=== PATIENT | male | born 1955 | race African-American/Black ===

== ENCOUNTER 2018-02-27 15:35 | Inpatient (IN) ==
[2018-02-27] MEDS ORDERED: Sod Chloride 0.9% Inj 1,000 ML IV.SIG ONE (16:16)
[2018-02-27 17:05] LABS: Baso # (Auto) 0.1 th/mm3 (0.0-0.2); Baso % (Auto) 0.4 % (0.0-2.0); Eos # (Auto) 11.3 th/mm3 (0.0-0.4); Eos % (Auto) 41.6 % (0.0-4.0); Hematocrit 43.2 % (39.0-51.0); Hemoglobin 14.9 gm/dL (13.0-17.0); Lymph # (Auto) 2.2 th/mm3 (1.0-4.8); Mean Corpuscular HGB Conc 34.4 % (32.0-36.0); Mean Corpuscular Hemoglobin 30.7 pg (27.0-34.0); Mean Corpuscular Volume 89.4 fL (80.0-100.0); Mean Platelet Volume 9.9 fL (7.0-11.0); Mono # (Auto) 1.8 th/mm3 (0.0-0.9); Mono % (Auto) 6.5 % (0.0-8.0); Neut # (Auto) 11.8 th/mm3 (1.8-7.7); Neut % (Auto) 43.5 % (16.0-70.0); Platelet Count 503 th/mm3 (150-450); Red Blood Count 4.84 mil/mm3 (4.50-5.90); Red Cell Distribution Width 13.4 % (11.6-17.2); White Blood Count 27.1 th/mm3 (4.0-11.0)
--- NOTE | 2018-02-27 17:05 | ED ---
HPI General Chief Complaint: Back Pain/Injury Stated Complaint: back pain Time Seen by Provider: 02/27/18 16:15 Source: patient Mode of arrival: ambulatory Limitations: no limitations History of Present Illness HPI Narrative: The patient 62 years old and arrives to the ER after visiting the [facility]. The [facility] doctor requested a "rule out Churg-Juan C syndrome" workup which was evidently considered appropriate due to an eosinophilia of 50% on CBC. Patient reports back pain which started the day after he lifted a heavy mattress upstairs. He also has abdominal pain which started a few days after he started taking Aleve for the back pain. No vomiting or fever. No numbness or tingling in the saddle distribution. No fever. No incontinence of urine or stool. Patient reports a history of prostate cancer evidently in its very early stage. No history diabetes. No history chronic steroid use. Back pain started about 3 weeks ago. Patient started taking Aleve about a week after that. MD Complaint: Reports back pain Related Data Home Medications Medication Instructions Recorded Confirmed albuterol sulfate 2 puff INHALATION Q4-6H PRN 02/27/18 02/27/18 baclofen 20 mg PO BID PRN 02/27/18 02/27/18 budesonide-formoterol 2 puff INHALATION BID 02/27/18 02/27/18 meloxicam 15 mg PO DAILY PRN 02/27/18 02/27/18 simvastatin 10 mg PO QPM 02/27/18 02/27/18 Allergies Allergy/AdvReac Type Severity Reaction Status Date / Time No Known Allergies Allergy Verified 02/27/18 16:16 Review of Systems ROS: all other systems reviewed are negative PMFSH Medical History Medical History Asthma (Acute) Hypercholesterolemia (Acute) Prostate CA (Acute) Surgical History Surgical History No history of previous surgery (Acute) Social History Social History Substance History: No History of Abuse Smoking Status: Never smoker How Often Do You Have a Drink Containing Alcohol: Never Recent Travel in [place] within the Last 8 Weeks: No Recent Out of Country Travel within the Last 8 Weeks: No Exam Narrative Exam Narrative: GENERAL: 62-year-old male well-nourished well-developed SKIN: Focused skin assessment warm/dry. HEAD: Atraumatic. Normocephalic. EYES: Pupils equal and round. No scleral icterus. No injection or drainage. ENT: No nasal bleeding or discharge. Mucous membranes pink and moist. NECK: Trachea midline. No JVD. CARDIOVASCULAR: Regular rate and rhythm. No murmur appreciated. RESPIRATORY: No accessory muscle use. Clear to auscultation. Breath sounds equal bilaterally. GASTROINTESTINAL: Abdomen soft, non-tender, nondistended. Hepatic and splenic margins not palpable. MUSCULOSKELETAL: No obvious deformities. No clubbing. No cyanosis. No edema. No focal tenderness cervical spine exam. NEUROLOGICAL: Flexion at the hip is equal bilaterally. Flexion extension at the knees normal. Ankle and great toe flexion extension normal. Sensation equal bilaterally. Cranial nerves II through XII normal. Speech mentation normal. PSYCHIATRIC: Appropriate mood and affect; insight and judgment normal. Course Initial Documented Vital Signs Temperature 97.8 F 02/27/18 15:39 Pulse Rate 114 H 02/27/18 15:39 Respiratory Rate 20 02/27/18 15:39 Blood Pressure 125/64 02/27/18 15:39 Pulse Oximetry 100 02/27/18 15:39 Last Documented Vital Signs Temperature 97.8 F 02/27/18 15:39 Pulse Rate 114 H 02/27/18 15:39 Respiratory Rate 20 02/27/18 15:39 Blood Pressure 125/64 02/27/18 15:39 Pulse Oximetry 100 02/27/18 15:39 Critical Care Time Critical Care Time: Yes Total Critical Care Time: 35 Attestation: Aggregate critical care time was 35 minutes. Time to perform other separately billable procedures was not included in the critical care time. My time did not include minutes spent treating any other patients simultaneously or on activities that did not directly contribute to the patient's treatment. The services I provided to this patient were to treat and/or prevent clinically significant deterioration that could result in: severe sepsis, MODS I provided critical care services requiring my management, as noted below: Chart data review, documentation time, medication orders and management, vital sign assessments/reviewing monitor data, ordering and reviewing lab tests, ordering and interpreting/reviewing x-rays and diagnostic studies, care of the patient and discussion of the patient with the admitting physicians. Medical Decision Making MDM Narrative Medical decision making narrative: The patient arrives at the behest of the [facility]. Workup here reveals a CT scan with a hiatal hernia and no other acute abnormality. CBC shows a leukocytosis of 27,000 with 40% eosinophils and a few band neutrophils. No obvious nidus of infection is apparent with workup so far. Lung bases are clear on CT and the patient has no pulmonary complaints. Has been no vomiting or diarrhea. Hiatal hernia could be the cause of chest pain and the patient reports drinking a lot of joanie yuan which when coupled with Aleve might actually exacerbate or cause gastritis symptoms. Case discussed with Dr. Ladd for hematology who advises observation or admission with a plan for infectious disease consultation. Empiric antibiotic coverage considered reasonable. Eosinophilia may be in keeping with parasitic infection per Dr. Ladd. d/w Dr Arndt. blood cultures drawn. levaquin started. Medical Screen Exam Complete: Yes Emergency Medical Condition: Yes Differential Diagnosis Differential Diagnosis: Gastritis, peptic ulcer disease, pancreatitis, psoas strain, myofascial strain, DJD, epidural abscess, metastatic tumor Medical Records Medical records reviewed: Yes I reviewed the patient's medical records. outside records Lab Data Lab results reviewed: Yes I reviewed the patient's lab results. Result diagrams: 02/27/18 16:35 02/27/18 17:45 Lab Results 02/27/18 02/27/18 02/27/18 Range/Units 16:35 16:35 17:45 WBC 27.1 H (4.0-11.0) th/mm3 RBC 4.84 (4.50-5.90) mil/mm3 Hgb 14.9 (13.0-17.0) gm/dL Hct 43.2 (39.0-51.0) % MCV 89.4 (80.0-100.0) fL MCH 30.7 (27.0-34.0) pg MCHC 34.4 (32.0-36.0) % RDW 13.4 (11.6-17.2) % Plt Count 503 H (150-450) th/mm3 MPV 9.9 (7.0-11.0) fL Prelim Diff (Auto) Slide review pending Neut % (Auto) 43.5 (16.0-70.0) % Lymph % (Auto) 8.0 L (9.0-44.0) % Wright % (Auto) 6.5 (0.0-8.0) % Eos % (Auto) 41.6 H (0.0-4.0) % Baso % (Auto) 0.4 (0.0-2.0) % Neut # (Auto) 11.8 H (1.8-7.7) th/mm3 Lymph # (Auto) 2.2 (1.0-4.8) th/mm3 Wright # (Auto) 1.8 H (0.0-0.9) th/mm3 Eos # (Auto) 11.3 H (0.0-0.4) th/mm3 Baso # (Auto) 0.1 (0.0-0.2) th/mm3 WBC Differential Manual diff final Seg Neuts % (Manual) 40 (16-70) % Band Neuts % (Manual) 6 (0-6) % Lymphocytes % (Manual) 3 L (9-44) % Monocytes % (Manual) 3 (0-8) % Eosinophils % (Manual) 48 H (0-4) % Abs Neuts (Manual) 12.5 H (1.8-7.7) th/mm3 Differential Comment . Platelet Estimate Normal (Normal) Platelet Morphology (Normal) PT 11.8 H (9.8-11.6) sec INR 1.2 Ratio APTT 24.9 (24.3-30.1) sec Sodium 131 L (136-145) meq/L Potassium 4.4 (3.5-5.1) meq/L Chloride 95 L (98-107) meq/L Carbon Dioxide 27.1 (21.0-32.0) meq/L Anion Gap 9 (5-15) meq/L BUN 46 H (7-18) mg/dL Creatinine 1.64 H (0.60-1.30) mg/dL Estimated GFR 52 L (>89) mL/min Random Glucose 115 H (74-106) mg/dL Calcium 9.5 (8.5-10.1) mg/dL Total Bilirubin 1.0 (0.2-1.0) mg/dL AST 26 (15-37) U/L ALT 39 (12-78) U/L Alkaline Phosphatase 86 (45-117) U/L Total Protein 9.5 H (6.4-8.2) g/dL Albumin 2.9 L (3.4-5.0) g/dL Lipase 304 (73-393) U/L Imaging Data Attestation: I personally reviewed and interpreted this imaging study as follows : (Lung bases are clear) Radiologist's impression: Abdomen/Pelvis CT 02/27/18 16:16 CONCLUSION: 1. No definite acute abnormality seen. 2. Possible mild hiatal hernia. Discharge Plan Discharge Disposition Patient Disposition: 30 Still Patient Physicians Team ED Provider: Thomas Nichols Primary Care Provider: UNKNOWN, Rxs /Orders / Referrals /Forms Prescriptions: No Action meloxicam 15 mg Tablet 15 mg PO DAILY PRN (Reason: pain) RF: 0 simvastatin 10 mg Tablet 10 mg PO QPM RF: 0 baclofen 20 mg Tablet 20 mg PO BID PRN (Reason: Muscle Spasm) RF: 0 albuterol sulfate 90 mcg/actuation Hfa Aerosol Inhaler 2 puff INHALATION Q4-6H PRN (Reason: Shortness Of Breath) RF: 0 budesonide-formoterol 160-4.5 mcg/actuation Hfa Aerosol Inhaler 2 puff INHALATION BID RF: 0 Status ED Status: With Doctor
[2018-02-27 17:33] LABS: Activated Partial Thrombo Time 24.9 sec (24.3-30.1); INR 1.2 Ratio; Prothrombin Time 11.8 sec (9.8-11.6)
[2018-02-27 17:39] LABS: Eosinophils 48 % (0-4); Lymphocytes 3 % (9-44); Monocytes 3 % (0-8)
[2018-02-27 17:44] LABS: Platelet Estimate Normal (Normal)
[2018-02-27 18:18] LABS: Alanine Aminotransferase 39 U/L (12-78); Albumin 2.9 g/dL (3.4-5.0); Anion Gap 9 meq/L (5-15); Aspartate Aminotransferase 26 U/L (15-37); Blood Urea Nitrogen 46 mg/dL (7-18); Calcium 9.5 mg/dL (8.5-10.1); Carbon Dioxide 27.1 meq/L (21.0-32.0); Chloride 95 meq/L (98-107); Glomerular Filtration Rate 52 mL/min (>89); Glucose,Random 115 mg/dL (74-106); Lipase 304 U/L (73-393); Potassium 4.4 meq/L (3.5-5.1); Sodium 131 meq/L (136-145)
[2018-02-27 18:21] LABS: Alkaline Phosphatase 86 U/L (45-117); Total Protein 9.5 g/dL (6.4-8.2)
--- NOTE | 2018-02-27 18:49 | CT ---
EXAM DATE: 02/27/2018 6:22 PM EDT AGE/SEX: 62 years / Male INDICATIONS: Left upper quadrant pain and back pain. CLINICAL DATA: This is the patient's initial encounter. Patient reports that signs and symptoms have been present for 2 days and indicates a pain score of 6/10. MEDICAL/SURGICAL HISTORY: Carcinoma, prostatic. Asthma. None. ORAL CONTRAST: No oral contrast ingested. RADIATION DOSE: 13.57 CTDI (mGy) COMPARISON: No prior exams available for comparison. TECHNIQUE: Multiple contiguous axial images were obtained through the abdomen and pelvis following b olus infusion of 50 ml Omnipaque 350 (iohexol) nonionic water-soluble contrast as a single exam dos e. No oral contrast ingested. Using automated exposure control and adjustment of the mA and/or kV ac cording to patient size, radiation dose was kept as low as reasonably achievable to obtain optimal di agnostic quality images. DICOM format image data is available electronically for review and comparis on. FINDINGS: Lower Lungs: The visualized lower lungs are clear. Liver: The liver has a homogeneous density without space-occupying lesion. There is no dilation of th e biliary tree. Spleen: Homogeneous density without enlargement. Pancreas: Unremarkable without mass or calcification. Kidneys: Normal in size and shape. No evidence of mass or hydronephrosis. Adrenal Glands: Unremarkable. Aorta: The aorta and proximal iliac vessels are grossly unremarkable without aneurysmal dilation. T here are scattered atherosclerotic calcifications present. Bowel/Mesentery: There appears to be a possible mild hiatal hernia. The bowel is unremarkable. The a ppendix appears normal. Abdominal Wall: Intact. Retroperitoneum: No evidence of adenopathy in the retrocrural, para-aortic, or deep pelvic regions. Bladder: Contours are smooth. Reproductive Organs: No abnormal masses or calcifications seen. Inguinal: The inguinal region is unremarkable without evidence of adenopathy. Bony Structures: There is degenerative change in the lumbar spine. There is some sclerosis at the an terior inferior endplate of L2 that most closely resembles discogenic sclerosis. CONCLUSION: 1. No definite acute abnormality seen. 2. Possible mild hiatal hernia. Electronically signed by: Nico Galo MD 02/27/2018 6:47 PM EDT
[2018-02-27] MEDS ORDERED: Acetaminophen 325 MG Tablet PO PRN (19:36)
[2018-02-27] MEDS ORDERED: Bisacodyl 10 MG Supp RECTAL PRN (19:36)
--- NOTE | 2018-02-27 19:37 | P.HPIM ---
History of Present Illness Primary Care Physician: UNKNOWN History of Present Illness: This is a 62-year-old male with a PMH of Prostate CA, Hyperlipidemia and Asthma who was referred to the ER by the [facility] for eosinophilia and to r/o Churg-Juan C Syndrome. Pt states he was seen at the [facility] for routine blood work and was told his eosinophils were elevated at 50%. Previous lab work in February of last year was normal per patient. Does have a h/o Asthma. Recently injured his back while picking up a mattress and has been taking Aleve prn w/ some relief, however developed abdominal pain and stopped taking Aleve 1wk ago. Denies fever , chills, cough, sick contacts, night sweats or recent travel. On arrival, BP 125/64, HR 114, O2 sat 100% on RA, Afebrile. WBC 27. Eosinophils 48%. INR 1.2. Creatinine 1.64, no previous labs for comparison. CT Abd/Pelvis w/ no acute abnormalities. Dr. Ladd consulted by ER physician, recommended antibiotics and likely eval w/ ID. Pt without complaints at this time. - Diagnosis (1) SIRS (systemic inflammatory response syndrome) (2) Eosinophilia (3) Renal insufficiency (4) Asthma (5) Back pain Review of Systems PAST FAMILY HISTORY: Reviewed. No h/o DM or CAD All other systems reviewed negative except as stated in HPI PMFSH - History History Provided By: Patient - Medical History Medical History: Medical History (Last Updated 02/27/18 @ 16:18 by Deanna Clay) Asthma Hypercholesterolemia Prostate CA - Surgical History Surgical History: Surgical History (Last Updated 02/27/18 @ 16:19 by Deanna Clay) No history of previous surgery - Tobacco History Smoking Status: Never smoker - Alcohol History How Often Do You Have a Drink Containing Alcohol: Never - Substance Use History Substance History: No History of Abuse - Travel History Recent Travel in the [place] Within the Last 8 Weeks: No Recent Travel Out of the Country Within the Last 8 Weeks: No - Immunization History Tetanus Immunization: >5 Years Medications and Allergies Active Medications: Active Medications Levofloxacin/Dextrose (Levaquin 750 Mg Premix Inj) 150 mls @ 100 mls/hr IV.SIG ONCE ONE Stop: 02/27/18 20:59 Sodium Chloride (Ns Flush) 2 ml IV.FLUSH PRN PRN PRN Reason: FLUSH AFTER USING IV ACCESS Last Admin: 02/27/18 17:55 Dose: 2 ml Allergies Allergy/AdvReac Type Severity Reaction Status Date / Time No Known Allergies Allergy Verified 02/27/18 16:16 Home Medications Medication Instructions Recorded Confirmed Type albuterol sulfate 2 puff INHALATION Q4-6H PRN 02/27/18 02/27/18 History baclofen 20 mg PO BID PRN 02/27/18 02/27/18 History budesonide-formoterol 2 puff INHALATION BID 02/27/18 02/27/18 History meloxicam 15 mg PO DAILY PRN 02/27/18 02/27/18 History simvastatin 10 mg PO QPM 02/27/18 02/27/18 History Exam Vital signs: Vital Signs 02/27/18 15:39 Temperature 97.8 F Pulse Rate 114 H Respiratory Rate 20 Blood Pressure 125/64 Pulse Oximetry 100 Intake & Output 02/27/18 02/27/18 02/28/18 06:59 18:59 06:59 Intake Total 1000 / 1000 Balance 1000 / 1000 Weight 77.111 kg Intake: IV 1000 / 1000 NS Inj 1,000 ML @ Wide Open IV. 1000 / 1000 SIG BOLUS ONE Rx#:[id number] Narrative: PE: GENERAL: Very pleasant middle-aged black male in no acute distress. SKIN: Focused skin assessment warm and dry. HEENT: PERRLA, EOMI. No scleral icterus or conjunctival pallor. No lid lag or facial droop. CARDIOVASCULAR: Regular rate and rhythm. No obvious murmurs to auscultation. No chest tenderness to palpation. RESPIRATORY: No obvious rhonchi or wheezing. Clear to auscultation. Breath sounds equal bilaterally. GASTROINTESTINAL: Abdomen soft, non-tender, nondistended. BS normal. MUSCULOSKELETAL: Extremities without clubbing, cyanosis, or edema. No obvious deformities. NEUROLOGICAL: Awake, alert and oriented x4. No focal neurologic deficits. Moving both upper and lower extremities spontaneously. PSYCHIATRIC: Appropriate mood and affect. Insight and judgment normal. Results - Labs CBC & Chem 7: 02/27/18 16:35 02/27/18 17:45 Labs: Short CBC 02/27/18 Range/Units 16:35 WBC 27.1 H (4.0-11.0) th/mm3 Hgb 14.9 (13.0-17.0) gm/dL Hct 43.2 (39.0-51.0) % Plt Count 503 H (150-450) th/mm3 BMP 02/27/18 17:45 Sodium 131 L Potassium 4.4 Chloride 95 L Carbon Dioxide 27.1 BUN 46 H Creatinine 1.64 H Calcium 9.5 Liver Function 02/27/18 Range/Units 17:45 Total Bilirubin 1.0 (0.2-1.0) mg/dL AST 26 (15-37) U/L ALT 39 (12-78) U/L Alkaline Phosphatase 86 (45-117) U/L Albumin 2.9 L (3.4-5.0) g/dL - Imaging Impressions Abdomen/Pelvis CT 02/27/18 16:16 CONCLUSION: 1. No definite acute abnormality seen. 2. Possible mild hiatal hernia. Caprini VTE Risk Assessment Caprini VTE Risk Assessment: No/Low Risk (score <= 1) Caprini Risk Assessment Model: Point Value = 1 Point Value = 2 Point Value = 3 Point Value = 5 Age 41-60 Minor surgery BMI > 25 kg/m2 Swollen legs Varicose veins or History of unexplained or recurrent spontaneous Oral contraceptives or hormone replacement Sepsis (< 1 month) Serious lung disease, including pneumonia (< 1 month) Abnormal pulmonary function Acute myocardial infarction Congestive heart failure (< 1 month) History of inflammatory bowel disease Medical patient at bed rest Age 61-74 Arthroscopic surgery Major open surgery (> 45 min) Laparoscopic surgery (> 45 min) Malignancy Confined to bed (> 72 hours) Immobilizing plaster cast Central venous access Age >= 75 History of VTE Family history of VTE Factor V Leiden Prothrombin [id number] Lupus anticoagulant Anticardiolipin antibodies Elevated serum homocysteine Heparin-induced thrombocytopenia Other congenital or acquired thrombophilia Stroke (< 1 month) Elective arthroplasty Hip, pelvis, or leg fracture Acute spinal cord injury (< 1 month) Prophylaxis Regimen: Total Risk Factor Score Risk Level Prophylaxis Regimen 0-1 Low Early ambulation 2 Moderate Order ONE of the following: *Sequential Compression Device (SCD) *Heparin 5000 units SQ BID 3-4 Higher Order ONE of the following medications: *Heparin 5000 units SQ TID *Enoxaparin/Lovenox 40 mg SQ daily (WT < 150 kg, CrCl > 30 mL/min) *Enoxaparin/Lovenox 30 mg SQ daily (WT < 150 kg, CrCl > 10-29 mL/min) *Enoxaparin/Lovenox 30 mg SQ BID (WT < 150 kg, CrCl > 30 mL/min) AND/OR *Sequential Compression Device (SCD) 5 or more Highest Order ONE of the following medications: *Heparin 5000 units SQ TID (Preferred with Epidurals) *Enoxaparin/Lovenox 40 mg SQ daily (WT < 150 kg, CrCl > 30 mL/min) *Enoxaparin/Lovenox 30 mg SQ daily (WT < 150 kg, CrCl > 10-29 mL/min) *Enoxaparin/Lovenox 30 mg SQ BID (WT < 150 kg, CrCl > 30 mL/min) AND *Sequential Compression Device (SCD) Assessment and Plan - Assessment (1) SIRS (systemic inflammatory response syndrome) Code(s): R65.10 - Systemic inflammatory response syndrome (SIRS) of non- infectious origin without acute organ dysfunction Status: Acute (2) Eosinophilia Code(s): D72.1 - Eosinophilia Status: Acute (3) Renal insufficiency Code(s): N28.9 - Disorder of kidney and ureter, unspecified Status: Acute (4) Asthma Code(s): J45.909 - Unspecified asthma, uncomplicated Status: Acute (5) Back pain Code(s): M54.9 - Dorsalgia, unspecified Status: Acute - Plan A/P: 1. SIRS: HR 114, WBC 27, Source-unclear. CT Abd/Pelvis w/ no acute findings, images reviewed. Check U/a to eval for UTI. Check CXR to eval for possible PNA. Continue w/ Levaquin for now. 2. Eosinophilia: 48%, no previous labs for comparison, but pt reports lab work normal in the past. Eosinophilia possibly related to Asthma, however higher than expected. ?parasitic infection, however denies fever, chills, sick contacts, no recent travel. [facility] to [facility] Churg-Juan C, however very rare and pt denies cough, night sweats or weight loss. Will consult Hematology and ID for further eval and recommendations. 3. Asthma: no c/o SOB, check CXR to eval for underlying PNA, Albuterol Neb prn. 4. ELISE: Creatinine 1.64, no previous labs for comparison, IVF for hydration, check U/a to eval for UTI, monitor I/O, repeat labs in am. 5. Back Pain: Musculoskeletal, reports injury after picking up mattress, continue analgesics/antiemetics as needed. 6. DVT Prophylaxis: SCD/Teds 7. Social work for d/c planning as needed. 8. Case discussed w/ ER physician at length, labs/records/imaging reviewed by me.
[2018-02-27] MEDS: Sod Chloride 0.9% Inj 1,000 ML IV.CONT SCH (20:20)
--- NOTE | 2018-02-27 20:40 | XR ---
EXAM DATE: 02/27/2018 12:00 AM EDT AGE/SEX: 62 years / Male INDICATIONS: Evaluate for pneumonia. CLINICAL DATA: This is the patient's initial encounter. Patient reports that signs and symptoms have been present for 1 day and indicates a pain score of 0/10. MEDICAL/SURGICAL HISTORY: . Carcinoma, prostatic. Asthma. None. COMPARISON: No prior exams available for comparison. FINDINGS: Approximate 4.5 cm parenchymal consolidation is present in the right mid lung, however mass is difficult to exclude. Heart and mediastinum are unremarkable for technique. CONCLUSION: Probable right lung pneumonia. Follow up is recommended with repeat chest x-ray 4-6 weeks after appro priate clinical therapy. Electronically signed by: Padmini Umanzor MD 02/27/2018 8:39 PM EDT
[2018-02-27] MEDS ORDERED: Morphine Sulfate Inj 2 MG/ML Vial IV.PUSH PRN (21:20)
[2018-02-27] MEDS: Senna/Docusate Sodium 8.6/50 MG Tablet PO SCH (22:07)
[2018-02-28] MEDS: Sod Chloride 0.9% Inj 1,000 ML IV.CONT SCH ×2 (06:05→16:10)
[2018-02-28 06:43] LABS: Baso # (Auto) 0.1 th/mm3 (0.0-0.2); Baso % (Auto) 0.5 % (0.0-2.0); Eos # (Auto) 14.5 th/mm3 (0.0-0.4); Eos % (Auto) 52.2 % (0.0-4.0); Hematocrit 36.2 % (39.0-51.0); Hemoglobin 12.2 gm/dL (13.0-17.0); Lymph # (Auto) 1.3 th/mm3 (1.0-4.8); Lymph % (Auto) 4.8 % (9.0-44.0); Mean Corpuscular HGB Conc 33.7 % (32.0-36.0); Mean Corpuscular Hemoglobin 30.7 pg (27.0-34.0); Mean Corpuscular Volume 90.9 fL (80.0-100.0); Mean Platelet Volume 8.9 fL (7.0-11.0); Mono # (Auto) 1.9 th/mm3 (0.0-0.9); Mono % (Auto) 6.6 % (0.0-8.0); Neut % (Auto) 35.9 % (16.0-70.0); Platelet Count 315 th/mm3 (150-450); Red Blood Count 3.99 mil/mm3 (4.50-5.90); Red Cell Distribution Width 13.3 % (11.6-17.2); White Blood Count 27.9 th/mm3 (4.0-11.0)
[2018-02-28 07:23] LABS: Alanine Aminotransferase 25 U/L (12-78); Albumin 2.1 g/dL (3.4-5.0); Alkaline Phosphatase 80 U/L (45-117); Anion Gap 9 meq/L (5-15); Aspartate Aminotransferase 14 U/L (15-37); Blood Urea Nitrogen 33 mg/dL (7-18); Calcium 7.9 mg/dL (8.5-10.1); Carbon Dioxide 24.6 meq/L (21.0-32.0); Chloride 102 meq/L (98-107); Glomerular Filtration Rate 77 mL/min (>89); Glucose,Random 92 mg/dL (74-106); Potassium 4.5 meq/L (3.5-5.1); Sodium 136 meq/L (136-145); Total Protein 7.5 g/dL (6.4-8.2)
[2018-02-28] MEDS: Senna/Docusate Sodium 8.6/50 MG Tablet PO SCH ×2 (09:58→20:16)
[2018-02-28 11:14] LABS: Erythrocyte Sedimentation Rate 115 mm/hr (0-20)
--- NOTE | 2018-02-28 11:23 | CT ---
EXAM DATE: 02/28/2018 10:44 AM EDT AGE/SEX: 62 years / Male INDICATIONS: Abnormal prior imaging. CLINICAL DATA: This is the patient's initial encounter. Patient reports that signs and symptoms have been present for 1 day and indicates a pain score of 7/10. MEDICAL/SURGICAL HISTORY: Asthma. Carcinoma, prostatic. None. RADIATION DOSE: 7.01 CTDI (mGy) COMPARISON: [facility] [place], CHEST 1V SINGLE AP, 02/27/2018. [facility] [place], CT ABDOMEN & PELVIS W CONTRAST, 8. . TECHNIQUE: Multiple contiguous axial images were obtained through the chest without contrast. Image s were obtained in suspended respiration using multiple row detector helical technique. Using automa silvino exposure control and adjustment of the mA and/or kV according to patient size, radiation dose was kept as low as reasonably achievable to obtain optimal diagnostic quality images. DICOM format imag e data is available electronically for review and comparison. FINDINGS: Lungs: There is an area of densely calcified pleural plaque overlying the anterior right thorax and there is architectural distortion and tethering of the adjacent pulmonary parenchyma of the right upp er lobe. There is adjacent traction bronchiectasis and there is volume loss identified within the rig ht middle lobe with area of mild bronchiectasis. The remainder of the lungs are clear. Mediastinum: There is good visualization of the great vessels of the middle mediastinum. No evidenc e of mediastinal or hilar adenopathy/mass. Pleurae: Focal area of calcified pleural plaque within the anterior aspect of the right hemithorax. Axillae: Unremarkable. Bony Structures: Unremarkable. Miscellaneous: The imaged portion of the abdomen demonstrates abnormal appearance of the partially i rosalinda gallbladder which suggest gallbladder wall thickening. However, no persistent abnormality is se en on the subsequent CT abdomen and pelvis. This is likely secondary to volume averaging. CONCLUSION: 1. Area of densely calcified pleural plaque involving the anterior aspect of the right upper lobe wi th adjacent parenchymal opacity and architectural distortion consistent with an area of scarring and rounded atelectasis. Given lack of prior imaging recommend follow-up imaging in 3-6 months to evaluat e for stability. Electronically signed by: Cassia Dye MD 02/28/2018 11:21 AM EDT
--- NOTE | 2018-02-28 11:53 | P.CONID ---
History of Present Illness Service: Infectious Disease Consult date: 02/28/18 Requesting Physician: Eleno Ladd Reason for Consult: Evaluation and Mment of hypereosinophilia, leucocytosis SIRS. Primary Care Provider: UNKNOWN History of Present Illness: is a 62 y/o AAM with a PMHx of Prostate CA, Hyperlipidemia and late diagnosis of Asthma who was referred to the ER by the [facility] for eosinophilia and to workup hypereosinophilia and r/o Churg-Juan C Syndrome. Pt states he was seen at the [facility] for routine blood work and was told his eosinophils were elevated at 50%. Previous lab work in February of last year was normal per patient. Patient reports that he recently injured his back while picking up a mattress. He reports taking OTC Aleve prn w/ some relief, however developed abdominal pain and stopped taking Aleve 1 wk ago. His PCP notes indicate concern for NSAID gastritis. PCP at [facility] changed his pain medications to Meloxicam and Baclofen with some relief of pain. PCP sent labs with WBC 30, high eosinophils. On arrival, BP 125/64, HR 114, O2 sat 100% on RA, Afebrile. WBC 27. Eosinophils 48%. INR 1.2. Creatinine 1.64, no previous labs for comparison. CT Abd/Pelvis w/ no acute abnormalities. consulted by ER physician, recommended antibiotics and eval w/ ID. Pt without complaints at this time. Pertinent positives and negatives: Denies fever, chills, cough, sick contacts, night sweats or recent travel. Family history of Asthma: brother and father. 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 Used to live in [facility] prior to moving to [place]. Patient reports exposure to mold in his house due to water damage. Patient also reports seeing an neurology specialist and was told he was allergic to dog dander. He gave away his dog to someone else and since then has noted improvement in respiratory symptoms. he reports using Symbicort less. No antibiotic exposure prior to admission. No systemic or oral steroids prior to admission. No diarrhea or GI symptoms such as cramps or bloating or parasites in stool No skin issues such as dermatitis No Resp symptoms at present time No cough or phlegm No muscle aches to suggest dermatomyositis or eosinophilic myositis syndromes. ID consulted for Evaluation and MMent of hypereosinophilia and leucocytosis/ SIRS. Review of Systems All other systems reviewed negative except as stated in HPI Ears, Nose, Mouth, and Throat: Reports change in voice, Reports nasal congestion PMFSH - History History Provided By: Patient - Medical History Medical History: Medical History (Last Updated 02/27/18 @ 16:18 by Deanna Clay) Asthma Hypercholesterolemia Prostate CA - Surgical History Surgical History: Surgical History (Last Updated 02/27/18 @ 16:19 by Deanna Clay) No history of previous surgery - Tobacco History Second Hand Smoke Exposure: No Smoking Status: Never smoker - Alcohol History How Often Do You Have a Drink Containing Alcohol: Never - Substance Use History Substance History: No History of Abuse - Travel History Recent Travel in the [place] Within the Last 8 Weeks: No Recent Travel Out of the Country Within the Last 8 Weeks: No - Immunization History Tetanus Immunization: <5 Years Hx Influenza Vaccine This Season: No Medications and Allergies Active Medications: Active Medications Acetaminophen (Tylenol) 650 mg PO Q4H PRN PRN Reason: Temp > 100.4 Hydrocodone Bitart/Acetaminophen ([place] 5/325) 1 tab PO Q4H PRN PRN Reason: PAIN 3-5 Last Admin: 02/28/18 04:02 Dose: 1 tab Al Hydroxide/Mg Hydroxide (Milk Of Magnesia Liq) 30 ml PO Q12H PRN PRN Reason: Mild Constipation Albuterol (Albuterol Neb (Prn)) 2.5 mg NEB Q4HR NEB PRN PRN Reason: SOB/WHEEZING Bisacodyl (Dulcolax Supp) 10 mg RECTAL DAILY PRN PRN Reason: SEVERE CONSITIPATION Levofloxacin/Dextrose (Levaquin 750 Mg Premix Inj) 150 mls @ 100 mls/hr IV.SIG Q24H SHAMA Sodium Chloride (Ns Inj) 1,000 mls @ 100 mls/hr IV.CONT .Q10H SHAMA Last Admin: 02/28/18 06:05 Dose: 100 mls/hr Lactulose (Lactulose Liq) 30 ml PO DAILY PRN PRN Reason: SEVERE CONSITIPATION Morphine Sulfate (Morphine Inj) 2 mg IV.PUSH Q4H PRN PRN Reason: PAIN 6-10 Ondansetron HCl (Zofran Inj) 4 mg IV.PUSH Q6H PRN PRN Reason: NAUSEA OR VOMITING Senna/Docusate Sodium (Marichuy-Colace) 1 tab PO BID SHAMA Last Admin: 02/28/18 09:58 Dose: Not Given Sennosides (Senokot) 17.2 mg PO Q12H PRN PRN Reason: Moderate Constipation Sodium Chloride (Ns Flush) 2 ml IV.FLUSH PRN PRN PRN Reason: FLUSH AFTER USING IV ACCESS Last Admin: 02/27/18 17:55 Dose: 2 ml Allergies Allergy/AdvReac Type Severity Reaction Status Date / Time No Known Allergies Allergy Verified 02/27/18 16:16 Home Medications Medication Instructions Recorded Confirmed Type albuterol sulfate 2 puff INHALATION Q4-6H PRN 02/27/18 02/27/18 History baclofen 20 mg PO BID PRN 02/27/18 02/27/18 History budesonide-formoterol 2 puff INHALATION BID 02/27/18 02/27/18 History meloxicam 15 mg PO DAILY PRN 02/27/18 02/27/18 History simvastatin 10 mg PO QPM 02/27/18 02/27/18 History Exam Vital signs: Vital Signs 02/27/18 15:39 02/27/18 20:00 02/27/18 21:35 Temperature 97.8 F 97.5 F L Pulse Rate 114 H 95 H Respiratory Rate 20 18 16 Blood Pressure 125/64 122/70 Pulse Oximetry 100 96 02/27/18 22:30 02/28/18 00:00 02/28/18 04:00 Temperature 97.5 F L 97.6 F Pulse Rate 87 83 86 Respiratory Rate 18 18 Blood Pressure 117/64 125/70 Pulse Oximetry 97 99 02/28/18 08:00 Temperature 97.7 F Pulse Rate 82 Respiratory Rate 16 Blood Pressure 130/67 Pulse Oximetry 97 Intake & Output 02/27/18 02/28/18 02/28/18 18:59 06:59 18:59 Intake Total 2149 / 0 Balance 215 / 2149 Weight 77.111 kg 77.111 kg Intake: IV 2149 / 0 NS Inj 1,000 ML @ 100 mls/hr IV 1000 / 1000 .CONT .Q10H SHAMA Rx#:[id number] Levaquin 750 mg Premix Inj 150 150 / 150 ML @ 100 mls/hr IV.SIG ONCE ONE Rx#:[id number] NS Inj 1,000 ML @ Wide Open IV. 1000 / 1000 SIG BOLUS ONE Rx#:[id number] Other: # Voids 2 Weight On Admission 77.111 kg Narrative: GENERAL: Well-nourished well-developed, not in acute distress SKIN: Cool and dry, no generalized rash HEAD: Atraumatic. Normocephalic. No temporal or scalp tenderness. EYES: Pupils equal round and reactive. Scleral icterus. No injection or drainage. No petechia ENT: Nothing abnormal detected NECK: Trachea midline. Supple, nontender, no meningeal signs. CARDIOVASCULAR: HS audible. RESPIRATORY: Clear to auscultation bilaterally. GASTROINTESTINAL: Abdomen soft nontender. MUSCULOSKELETAL: Extremities without clubbing, cyanosis. NEUROLOGICAL: Alert oriented 3. Nonfocal. Psych cooperative IV line sites ok. Results - Labs CBC & Chem 7: 02/28/18 05:29 02/28/18 05:29 Labs: Laboratory Results - last 24 hr 02/27/18 02/27/18 02/27/18 16:35 16:35 17:45 WBC 27.1 H RBC 4.84 Hgb 14.9 Hct 43.2 MCV 89.4 MCH 30.7 MCHC 34.4 RDW 13.4 Plt Count 503 H MPV 9.9 Prelim Diff (Auto) Slide review pending Neut % (Auto) 43.5 Lymph % (Auto) 8.0 L Campbell % (Auto) 6.5 Eos % (Auto) 41.6 H Baso % (Auto) 0.4 Neut # (Auto) 11.8 H Lymph # (Auto) 2.2 Campbell # (Auto) 1.8 H Eos # (Auto) 11.3 H Baso # (Auto) 0.1 WBC Differential Manual diff final Seg Neuts % (Manual) 40 Band Neuts % (Manual) 6 Lymphocytes % (Manual) 3 L Monocytes % (Manual) 3 Eosinophils % (Manual) 48 H Abs Neuts (Manual) 12.5 H Differential Comment . Platelet Estimate Normal Platelet Morphology Smear Path Review ESR PT 11.8 H INR 1.2 APTT 24.9 Sodium 131 L Potassium 4.4 Chloride 95 L Carbon Dioxide 27.1 Anion Gap 9 BUN 46 H Creatinine 1.64 H Estimated GFR 52 L Random Glucose 115 H Calcium 9.5 Total Bilirubin 1.0 AST 26 ALT 39 Alkaline Phosphatase 86 Total Protein 9.5 H Albumin 2.9 L Lipase 304 02/28/18 02/28/18 02/28/18 05:29 05:29 05:29 WBC 27.9 H RBC 3.99 L Hgb 12.2 L D Hct 36.2 L MCV 90.9 MCH 30.7 MCHC 33.7 RDW 13.3 Plt Count 315 D MPV 8.9 Prelim Diff (Auto) Neut % (Auto) 35.9 Lymph % (Auto) 4.8 L Campbell % (Auto) 6.6 Eos % (Auto) 52.2 H Baso % (Auto) 0.5 Neut # (Auto) 10.0 H Lymph # (Auto) 1.3 Campbell # (Auto) 1.9 H Eos # (Auto) 14.5 H Baso # (Auto) 0.1 WBC Differential . Seg Neuts % (Manual) Band Neuts % (Manual) Lymphocytes % (Manual) Monocytes % (Manual) Eosinophils % (Manual) Abs Neuts (Manual) Differential Comment Auto diff final Platelet Estimate Platelet Morphology Smear Path Review ESR 115 H PT INR APTT Sodium 136 Potassium 4.5 Chloride 102 Carbon Dioxide 24.6 Anion Gap 9 BUN 33 H Creatinine 1.16 Estimated GFR 77 L Random Glucose 92 Calcium 7.9 L D Total Bilirubin 1.2 H AST 14 L ALT 25 Alkaline Phosphatase 80 Total Protein 7.5 D Albumin 2.1 L D Lipase - Imaging Impressions Chest X-Ray 02/27/18 00:00 CONCLUSION: Probable right lung pneumonia. Follow up is recommended with repeat chest x-ray 4-6 weeks after appropriate clinical therapy. Abdomen/Pelvis CT 02/27/18 16:16 CONCLUSION: 1. No definite acute abnormality seen. 2. Possible mild hiatal hernia. Chest CT 02/28/18 00:00 CONCLUSION: 1. Area of densely calcified pleural plaque involving the anterior aspect of the right upper lobe with adjacent parenchymal opacity and architectural distortion consistent with an area of scarring and rounded atelectasis. Given lack of prior imaging recommend follow-up imaging in 3-6 months to evaluate for stability. Assessment and Plan - Plan Hypereosinophilia: DDx: Rule out infections such as parasites,fungal infections. Drug induced allergy: check urine eosinophils. Baseline labs 1 month back were negative. With Cr being high check for urine eosinophils. Nothing to suggest Eosinophilia myositis syndromes. Possible Pulm Eosinophilia syndromes. Rule out T cell lymphoma if persistent eosinophilia and no cause found. Leucocytosis: was not on steroids likely part of eosinophilia process. Rule out T cell lymphoma. Oncology on board. Late diagnosis of Asthma. Rule out Churgg Juan C syndrome. Acute renal failure: was on NSAIDS ? allergic reaction to drug. recs: Check eosinophils in urine. Check Stool studies to r/o parasites. Check Fungal and AFB blood infections. Check Aspergillus as cause for Pulm Eosinophilia syndrome. Consult Pulmonology may need Bronch if eosinophilia persists send BAL eosinophils count and cultures. Fungal studies Continue Levaquin for now. Check HIV screen Check Hepatitis panel. Check Immuneglobulins particularly IgE. Follow cultures and tests Follow clinical course. mary alice wheat RN mary alice patient plan for the day [facility]ed [facility].
--- NOTE | 2018-02-28 12:47 | ECG ---
Date Performed: 02/27/2018 Time Performed: 17:53:19 PTAGE: 62 years EKG: Sinus rhythm POSSIBLE LEFT ATRIAL ENLARGEMENT MINIMAL ST DEPRESSION BORDERLINE ECG NO PREVIOUS TRACING DOCTOR: Ramu Joe Interpretating Date/Time 02/28/2018 12:45:37
--- NOTE | 2018-02-28 13:05 | MB ---
cc: Eleno Ladd MD DATE: 02/28/2018 PHYSICIAN: Dr. Arndt. REASON FOR VISIT: Hematology consult rendering opinion on a patient with leukocytosis and eosinophilia. HISTORY OF PRESENT ILLNESS: The patient is a very pleasant 62-year-old male referred from [facility] for evaluation of leukocytosis eosinophilia and to evaluate for Churg-Juan C syndrome. The patient has history of asthma and had occasional exacerbations, last episode about 2 weeks ago. He also hurt his back while picking up a mattress a couple weeks ago. He started taking Aleve for about 4 days and developed midepigastric pain. He went to see his primary physician at the [facility]. The Aleve was stopped and he was given meloxicam and baclofen, which he has been taking for the last 4-5 days. CBC was done, which reportedly showed leukocytosis with 50% eosinophilia. The patient stated about 2 months ago, he had a physical exam and lab work was normal. He denies any fever or chill. He has no night sweats. He denies any weight loss. Denies chest pain. He has baseline shortness of breath from asthma. He denies significant cough. He has no nausea, vomiting, diarrhea. No melena or hematochezia. Abdominal pain has improved since he stopped the Aleve. He still has backache. He denies any change in urinary habits. He denies any rash or pleuritis. He denies any recent travel or eating unusual food. PAST MEDICAL HISTORY: 1. Prostate cancer, diagnosed about 3 months ago reportedly Alexander score was 6. 2. Hyperlipidemia. 3. Asthma. 4. Renal insufficiency. 5. Back pain. PAST SURGICAL HISTORY: 1. Right orchiectomy when he was a child due to an undescended testicle. 2. A cyst removed from his back. 3. Finger surgery while he was in the . 4. Prostate biopsy. FAMILY HISTORY: Six brothers, 3 sister, 1 son and a daughter, all healthy. No hematologic disorder in the family. SOCIAL HISTORY: No tobacco or alcohol use. ALLERGIES: NO KNOWN DRUG ALLERGIES. CURRENT MEDICATIONS: 1. Levaquin. 2. Marichuy-Colace. 3. He was taking meloxicam, baclofen, and the nasal spray as outpatient. REVIEW OF SYSTEMS: CONSTITUTIONAL: As above. EYES: Negative. ENT: Negative. CARDIOVASCULAR: No chest pressure or palpitation. RESPIRATORY: As above. GASTROINTESTINAL: As above. GENITOURINARY: As above. MUSCULOSKELETAL: As above. HEMATOLOGIC: As above. ENDOCRINE: Negative. DERMATOLOGY: Negative. PSYCHIATRIC: Negative. NEUROLOGIC: Negative. PHYSICAL EXAMINATION: VITAL SIGNS: Temperature 97.7, blood pressure 130/67, O2 saturation 97% on room air. GENERAL: He is alert and oriented x3, in no acute distress. HEENT: Atraumatic, normocephalic. Pupils are equal, round and reactive to light. Extraocular muscles are intact. No scleral icterus. Oropharynx dry mucosa. No lesion, no thrush, no ulcers. NECK: No thyromegaly. No palpable mass. LYMPHATIC: No palpable cervical, clavicular, axillary, or inguinal lymph nodes. CARDIOVASCULAR: Regular S1, S2 with no murmur. LUNGS: He has diffuse rhonchi and basilar crackles, he also has intermittent wheezing. ABDOMEN: Soft, nontender. Cannot palpate liver or spleen. EXTREMITIES: No cyanosis, no clubbing, no edema, no calf tenderness. BACK: No paravertebral tenderness. SKIN: No rash or petechiae. NEUROLOGIC: Nonfocal. LABORATORY DATA: WBC 27.9, hemoglobin 12.2, platelet count 312. Differential showed 52.2% eosinophilia with absolute eosinophil count 14.5, creatinine 1.16, total bilirubin 1.2, lipase 304. ASSESSMENT: 1. Leukocytosis and eosinophilia, which appeared to be acute onset. Reportedly, he had lab work done 2 months ago during his routine physical exam and was normal per patient. He noted to have leukocytosis and eosinophilia about a week ago. Repeat testing again showed persistent leukocytosis and eosinophilia. The patient has a history of asthma, but the degree of eosinophilia seems to be too high for asthma alone. The patient also started taking Aleve, which could also cause eosinophilia. On presentation, CT abdomen and pelvis did not show any acute changes. There was no splenomegaly or lymphadenopathy. Chest x-ray, however, showed a 4.5 cm parenchymal consolidation right middle lobe. On presentation, he had renal insufficiency, but creatinine has trended down with hydration. He likely has reactive leukocytosis and eosinophilia. We will also need to rule out primary bone marrow disorder and hypereosinophilic syndrome, but I think it is less likely. Other differential including infectious etiology and Infectious Disease has been consulted. I am going to get a CT of the chest to further evaluate the opacity noted on chest x-ray and he may need further pulmonology evaluation. We will also get a flow cytometry and check inflammatory markers, as well as a complement study. If all the workup is unremarkable, then we will proceed with a bone marrow biopsy to rule out bone marrow disorder. 2. Asthma with intermittent exacerbation. He has baseline shortness of breath. A chest x-ray showed opacity as above. 3. Prostate cancer reportedly diagnosed about 3 months ago. The patient stated, Crissy score was 6. His PSA was around 5. He was supposed to start radiation end of the month. He denies any urinary symptoms at this time. 4. Hyperlipidemia. 5. Renal insufficiency. The creatinine has trended down this morning. 6. Back pain. He hurt his back about 2 weeks ago while picking up a mattress. His pain has improved. RECOMMENDATIONS: 1. CT of the chest. 2. Check lab work as outlined above. 3. Await infectious disease evaluation. 4. May need a pulmonology evaluation pending CT finding. 5. We will consider bone marrow biopsy if the above evaluation is unremarkable and if he still has persistent leukocytosis and eosinophilia. Thank you Dr. Arndt for asking me to see this patient. MD AMARILYS De Leon/chantal , 10:58 AM , 11:14 AM [facility]
[2018-02-28 13:58] LABS: Complement C3 152 mg/dL (90-180); Immunoglobulin A 160 mg/dL (98-543); Immunoglobulin G 1880 mg/dL (670-1650); Immunoglobulin M 37 mg/dL (39-238); Vitamin B12 533 pg/mL (193-986)
--- NOTE | 2018-02-28 14:10 | P.PNIM ---
Subjective Interval history: Reports that he is starting to feel better. There is no active shortness of breath. No runny nose. No abdominal pain. He reports his back pain has improved. He does feel hungry wants to eat food. Physical Exam Vital signs: Vital Signs 02/27/18 15:39 02/27/18 20:00 02/27/18 21:35 Temperature 97.8 F 97.5 F L Pulse Rate 114 H 95 H Respiratory Rate 20 18 16 Blood Pressure 125/64 122/70 Pulse Oximetry 100 96 02/27/18 22:30 02/28/18 00:00 02/28/18 04:00 Temperature 97.5 F L 97.6 F Pulse Rate 87 83 86 Respiratory Rate 18 18 Blood Pressure 117/64 125/70 Pulse Oximetry 97 99 02/28/18 08:00 Temperature 97.7 F Pulse Rate 82 Respiratory Rate 16 Blood Pressure 130/67 Pulse Oximetry 97 Intake & Output 02/27/18 02/28/18 02/28/18 18:59 06:59 18:59 Intake Total 2150 / 2150 Balance 2150 / 2150 Weight 77.111 kg 77.111 kg Intake: IV 2150 / 2150 NS Inj 1,000 ML @ 100 mls/hr IV 1000 / 1000 .CONT .Q10H SHAMA Rx#:[id number] Levaquin 750 mg Premix Inj 150 150 / 150 ML @ 100 mls/hr IV.SIG ONCE ONE Rx#:[id number] NS Inj 1,000 ML @ Wide Open IV. 1000 / 1000 SIG BOLUS ONE Rx#:[id number] Other: # Voids 2 Weight On Admission 77.111 kg Narrative: GENERAL: This is a well-nourished, well-developed patient, in no apparent distress. CARDIOVASCULAR: Regular rate and rhythm without murmurs, gallops, or rubs. RESPIRATORY: Clear to auscultation. Breath sounds equal bilaterally. No wheezes , rales, or rhonchi. GASTROINTESTINAL: Abdomen soft, non-tender, nondistended. Normal active bowel sounds MUSCULOSKELETAL: Extremities without clubbing, cyanosis, or edema. NEURO: Alert & Oriented x4 to person, place, time, situation. Moves all ext x4 Skin: No lesions no abnormal changes warm and dry. Results - Labs CBC & Chem 7: 02/28/18 05:29 02/28/18 05:29 Laboratory Results - last 24 hr 02/27/18 02/27/18 02/27/18 16:35 16:35 17:45 WBC 27.1 H RBC 4.84 Hgb 14.9 Hct 43.2 MCV 89.4 MCH 30.7 MCHC 34.4 RDW 13.4 Plt Count 503 H MPV 9.9 Prelim Diff (Auto) Slide review pending Neut % (Auto) 43.5 Lymph % (Auto) 8.0 L [place] % (Auto) 6.5 Eos % (Auto) 41.6 H Baso % (Auto) 0.4 Neut # (Auto) 11.8 H Lymph # (Auto) 2.2 [place] # (Auto) 1.8 H Eos # (Auto) 11.3 H Baso # (Auto) 0.1 WBC Differential Manual diff final Seg Neuts % (Manual) 40 Band Neuts % (Manual) 6 Lymphocytes % (Manual) 3 L Monocytes % (Manual) 3 Eosinophils % (Manual) 48 H Abs Neuts (Manual) 12.5 H Differential Comment . Platelet Estimate Normal Platelet Morphology Smear Path Review ESR PT 11.8 H INR 1.2 APTT 24.9 Sodium 131 L Potassium 4.4 Chloride 95 L Carbon Dioxide 27.1 Anion Gap 9 BUN 46 H Creatinine 1.64 H Estimated GFR 52 L Random Glucose 115 H Calcium 9.5 Total Bilirubin 1.0 AST 26 ALT 39 Alkaline Phosphatase 86 Troponin I C-Reactive Protein Total Protein 9.5 H Albumin 2.9 L Lipase 304 Vitamin B12 IgG IgA IgM Complement C3 Complement C4 02/28/18 02/28/18 02/28/18 05:29 05:29 05:29 WBC 27.9 H RBC 3.99 L Hgb 12.2 L D Hct 36.2 L MCV 90.9 MCH 30.7 MCHC 33.7 RDW 13.3 Plt Count 315 D MPV 8.9 Prelim Diff (Auto) Neut % (Auto) 35.9 Lymph % (Auto) 4.8 L [place] % (Auto) 6.6 Eos % (Auto) 52.2 H Baso % (Auto) 0.5 Neut # (Auto) 10.0 H Lymph # (Auto) 1.3 [place] # (Auto) 1.9 H Eos # (Auto) 14.5 H Baso # (Auto) 0.1 WBC Differential . Seg Neuts % (Manual) Band Neuts % (Manual) Lymphocytes % (Manual) Monocytes % (Manual) Eosinophils % (Manual) Abs Neuts (Manual) Differential Comment Auto diff final Platelet Estimate Platelet Morphology Smear Path Review ESR 115 H PT INR APTT Sodium 136 Potassium 4.5 Chloride 102 Carbon Dioxide 24.6 Anion Gap 9 BUN 33 H Creatinine 1.16 Estimated GFR 77 L Random Glucose 92 Calcium 7.9 L D Total Bilirubin 1.2 H AST 14 L ALT 25 Alkaline Phosphatase 80 Troponin I C-Reactive Protein Total Protein 7.5 D Albumin 2.1 L D Lipase Vitamin B12 IgG IgA IgM Complement C3 Complement C4 02/28/18 02/28/18 12:50 12:50 WBC RBC Hgb Hct MCV MCH MCHC RDW Plt Count MPV Prelim Diff (Auto) Neut % (Auto) Lymph % (Auto) [place] % (Auto) Eos % (Auto) Baso % (Auto) Neut # (Auto) Lymph # (Auto) [place] # (Auto) Eos # (Auto) Baso # (Auto) WBC Differential Seg Neuts % (Manual) Band Neuts % (Manual) Lymphocytes % (Manual) Monocytes % (Manual) Eosinophils % (Manual) Abs Neuts (Manual) Differential Comment Platelet Estimate Platelet Morphology Smear Path Review ESR PT INR APTT Sodium Potassium Chloride Carbon Dioxide Anion Gap BUN Creatinine Estimated GFR Random Glucose Calcium Total Bilirubin AST ALT Alkaline Phosphatase Troponin I Less than 0.02 L C-Reactive Protein 22.10 H Cancelled Total Protein Albumin Lipase Vitamin B12 533 IgG 1880 H IgA 160 IgM 37 L Complement C3 152 Complement C4 23 Microbiology 02/27/18 20:00 Blood - Peripheral Aerobic Blood Culture - Preliminary No growth in 1 day 02/27/18 20:00 Blood - Peripheral Anaerobic Blood Culture - Preliminary No growth in 1 day 02/27/18 20:07 Blood - Peripheral Aerobic Blood Culture - Preliminary No growth in 1 day 02/27/18 20:07 Blood - Peripheral Anaerobic Blood Culture - Preliminary No growth in 1 day - Imaging Impressions Chest X-Ray 02/27/18 00:00 CONCLUSION: Probable right lung pneumonia. Follow up is recommended with repeat chest x-ray 4-6 weeks after appropriate clinical therapy. Abdomen/Pelvis CT 02/27/18 16:16 CONCLUSION: 1. No definite acute abnormality seen. 2. Possible mild hiatal hernia. Chest CT 02/28/18 00:00 CONCLUSION: 1. Area of densely calcified pleural plaque involving the anterior aspect of the right upper lobe with adjacent parenchymal opacity and architectural distortion consistent with an area of scarring and rounded atelectasis. Given lack of prior imaging recommend follow-up imaging in 3-6 months to evaluate for stability. Assessment and Plan - Assessment (1) SIRS (systemic inflammatory response syndrome) Code(s): R65.10 - Systemic inflammatory response syndrome (SIRS) of non- infectious origin without acute organ dysfunction Status: Resolved (2) Eosinophilia Code(s): D72.1 - Eosinophilia Status: Acute (3) Renal insufficiency Code(s): N28.9 - Disorder of kidney and ureter, unspecified Status: Acute (4) Asthma Code(s): J45.909 - Unspecified asthma, uncomplicated Status: Chronic (5) Back pain Code(s): M54.9 - Dorsalgia, unspecified Status: Acute - Plan 59-year-old male was sent to the emergency room [facility] for continue workup for findings of hypereosinophia and leukocytosis. 1. Presenting SIRS: HR 114, WBC 27, Source-unclear. CT Abd/Pelvis w/ no acute findings. Urinalysis showed no active infection, CT chest showed area of densely calcified pleural plaquing involving the anterior aspect of the right upper lobe with adjacent parenchymal opacity consistent with a area of scarring and rounded atelectasis. Patient reports he is aware of this previous findings and had a PET scan done that showed no signs of malignancy There has not been any fevers documented. We will continue Levaquin for now until further evaluation and workup. 2. hyperEosinophilia: Eosinophilia possibly related to Asthma, however higher than expected. ?parasitic infection, however denies fever, chills, sick contacts, no recent travel. [facility] to [facility]/o Churg-Juan C, however very rare and pt denies cough, night sweats or weight loss. Appreciate infectious disease and hematology recommendations and assistance in workup. Rule out infection however unlikely. Could be related to drug-induced allergy to recent use of Aleve which patient has not taken in the past previously We will also consult pulmonary for further evaluation workup for Churg-Juan C syndrome 3. Leukocytosis of questionable etiology as patient has not been on steroids in the past and there is no active signs of infection. Hematology oncology to assist in further workup to rule out T-cell lymphoma or other differential diagnosis. Check hepatitis panel HIV screening, patient counseled 3. Asthma, not in acute exacerbation: no c/o SOB, Albuterol Neb prn. 4. ELISE superimposed on chronic kidney disease stage III: Presenting creatinine 1.64 with improvement on IV fluid hydration overnight., 5. Back Pain: Musculoskeletal, reports injury after picking up mattress, continue analgesics/antiemetics as needed. Avoid NSAIDs at this point 6. DVT Prophylaxis: SCD/Teds Discharge Planning: Home when medically stable.
[2018-02-28 14:40] LABS: Hepatitis A IgM Antibody Nonreactive (Nonreactive); Hepatitits B Surface Antigen Nonreactive (Nonreactive)
[2018-02-28 18:40] LABS: Bacteria,Urine Occasional /hpf; Bilirubin,Urine Negative (Negative); Clarity,Urine Hazy (Clear); Color,Urine Yellow (Yellw/Straw); Glucose,Urine (UA) Negative (Negative); Leukocyte Esterase,Urine Negative (Negative); Mucus,Urine Few /lpf (Occasional); Nitrite,Urine Negative (Negative); Specific Gravity,Urine 1.027 (1.002-1.035); Squamous Epithelial Cell,Urine <1 /hpf (0-5); Uric Acid Crystals,Urine Occasional /hpf
[2018-02-28] MEDS: Budesonide-Formoterol 160/4.5 MCG 6 GM Inhaler INH SCH (20:16)
--- NOTE | 2018-02-28 20:31 | MB ---
cc: Katya Brannon MD DATE: 02/28/2018 REASON FOR CONSULTATION: Asthma and pulmonary eosinophilia. HISTORY OF PRESENT ILLNESS: This is a 62-year-old male with a history of hyperlipidemia, prostate cancer, history of asthma, and recurrent bronchitis, was sent to the ER for eosinophilia and to rule out Churg-Juan C syndrome. The patient apparently had some abdominal pains and had a recent chest x-ray and also has had a CAT scan of the chest which showed a pleural density in the right upper lung, as well as bronchiectasis in the right upper and middle lobe regions, but no other active infiltrates. He has been known to have asthma and is on Symbicort inhaler and has had a cough as well as wheezing, but does not bring up much sputum. He denied fevers or chills, night sweats, and has had some lower chest pain as well as upper abdominal pains. PAST MEDICAL HISTORY: The patient was diagnosed to have prostate cancer recently and was scheduled to have radiation therapy to his prostate. His other history includes hyperlipidemia and no other history of surgery in the past. HABITS: The patient is a nonsmoker and does not drink any alcohol. He worked in the [employer] and has traveled to [place], [facility], and other [facility] countries, but denies any history for any parasitic diseases. ALLERGIES: NO DRUG ALLERGIES ARE LISTED. REVIEW OF SYSTEMS: The patient denies recent weight loss. He has a cough. He has mild wheezing. He has postnasal drip. Denies night sweats. Denies urinary symptoms. No leg or calf muscle pain. He has some joint pains. EXTREMITIES: Denies any skin rash. PHYSICAL EXAMINATION: GENERAL: This is a well-built, middle-aged, male in no acute distress. No pallor, icterus, cyanosis. No clubbing or peripheral edema. VITAL SIGNS: Blood pressure is 120/70, pulse is 85, respirations 16, temperature 97.2. HEENT: Head is normocephalic. Pupils are reactive. Nasal mucosa injected. Throat is clear. NECK: No bruits or thyroid enlargement or lymphadenopathy. CHEST: Decreased breath sounds at the bases with wheezes bilaterally, prolonged expirations. HEART: Sounds are regular, S1 and S2. No murmur. No S3. ABDOMEN: Soft, nontender. No organomegaly. The bowel sounds are active. EXTREMITIES: No lesions or edema. No calf tenderness. Reflexes are 1+ with no gross motor or sensory deficits. NEUROLOGIC: Cranial nerves grossly intact. LABORATORY DATA: CBC shows eosinophilic count to be elevated at 11.3, hemoglobin is 14.9 and white count is elevated at 27.1. The IgE level is not reported yet. Chest x-ray, as mentioned above, has possible right lung infiltrate and a CAT scan suggesting pleural calcifications and plaque as well as bronchiectasis. IMPRESSION: 1. Bronchiectasis with pleural plaque, right lung. 2. Asthma with recurrent bronchitis. 3. 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 4. History of hyperlipidemia. 5. Carcinoma of the prostate. PLAN: The patient is already on Symbicort 2 puffs twice a day, which he will continue. Further workup for the density in the right lung, including a bronchoscopy and lavage could be considered, but needs to be approved by the [facility]. The patient will also be sent for a pulmonary function study with bronchodilator study and a total eosinophilic count, IgE level is pending. We will also get other autoimmune markers and check his renal indices. Blood gas studies will be obtained and the patient will be advised that bronchoscopy will be planned if approved. Thank you Dr. Flores for this consultation. Katya Brannon MD VJD/chantal , 07:12 PM , 07:25 PM
[2018-03-01] MEDS: Sod Chloride 0.9% Inj 1,000 ML IV.CONT SCH ×2 (02:45→12:27)
[2018-03-01] MEDS: Senna/Docusate Sodium 8.6/50 MG Tablet PO SCH ×2 (08:56→20:55)
[2018-03-01] MEDS: Budesonide-Formoterol 160/4.5 MCG 6 GM Inhaler INH SCH ×2 (08:57→22:22)
--- NOTE | 2018-03-01 10:52 | P.PNONC ---
Subjective Interval history: Afebrile. Patient lying in bed, no acute distress. He reports that he feels "back to normal" he states his pain has subsided and denies any shortness of breath. Objective Vital Signs/Intake & Output: Vital Signs 02/28/18 12:00 02/28/18 16:00 02/28/18 20:00 Temperature 98.0 F 97.7 F Pulse Rate 96 H 84 88 Respiratory Rate 16 20 Blood Pressure 142/70 H 137/85 Pulse Oximetry 95 98 03/01/18 00:00 03/01/18 04:00 03/01/18 08:00 Temperature 98 F 97.9 F 98.3 F Pulse Rate 81 84 93 H Respiratory Rate 18 18 16 Blood Pressure 139/79 137/70 150/75 H Pulse Oximetry 98 98 98 Intake & Output 02/28/18 03/01/18 03/01/18 18:59 06:59 18:59 Intake Total 1000 / 1000 870 / 870 Balance 1000 / 1000 870 / 870 Weight 74.7 kg Intake: IV 1000 / 1000 150 / 150 NS Inj 1,000 ML @ 100 mls/hr IV 1000 / 1000 .CONT .Q10H SHAMA Rx#:[id number] Levaquin 750 mg Premix Inj 150 150 / 150 ML @ 100 mls/hr IV.SIG Q24H SHAMA Rx#:[id number] Oral 720 / 720 Other: # Voids 2 4 Date of Last Bowel Movement 02/27/18 02/27/18 Result Diagrams: 02/28/18 05:29 02/28/18 05:29 Laboratory Results: Laboratory Results - last 24 hr 02/28/18 02/28/18 02/28/18 05:29 12:50 12:50 Smear Path Review ESR 115 H Troponin I Less than 0.02 L C-Reactive Protein 22.10 H Cancelled Vitamin B12 533 Procalcitonin Urine Color Urine Clarity Urine pH Ur Specific [place] Urine Protein Urine Glucose (UA) Urine Ketones Urine Occult Blood Urine Nitrate Urine Bilirubin Urine Urobilinogen Ur Leukocyte Esterase Urine RBC Urine WBC Ur Squamous Epith Cells Uric Acid Crystals Urine Bacteria Urine Mucus Micro UA Comment Ur Microscopic Review Urine Culture Comments Urine Eosinophils IgG 1880 H IgA 160 IgM 37 L Complement C3 152 Complement C4 23 Hepatitis A IgM Ab Hep Bs Antigen Hep B Core IgM Ab Hep C IgG Ab HIV 1&2 Ab/P24 Ag 4thGn 02/28/18 02/28/18 02/28/18 12:50 12:50 12:50 Smear Path Review ESR Troponin I C-Reactive Protein Vitamin B12 Procalcitonin 0.22 H Urine Color Urine Clarity Urine pH Ur Specific [place] Urine Protein Urine Glucose (UA) Urine Ketones Urine Occult Blood Urine Nitrate Urine Bilirubin Urine Urobilinogen Ur Leukocyte Esterase Urine RBC Urine WBC Ur Squamous Epith Cells Uric Acid Crystals Urine Bacteria Urine Mucus Micro UA Comment Ur Microscopic Review Urine Culture Comments Urine Eosinophils IgG IgA IgM Complement C3 Complement C4 Hepatitis A IgM Ab Nonreactive Hep Bs Antigen Nonreactive Hep B Core IgM Ab Nonreactive Hep C IgG Ab Nonreactive HIV 1&2 Ab/P24 Ag 4thGn Nonreactive 02/28/18 03/01/18 18:03 04:20 Smear Path Review ESR Troponin I C-Reactive Protein Vitamin B12 Procalcitonin Urine Color Yellow Urine Clarity Hazy H Urine pH 5.0 Ur Specific [place] 1.027 Urine Protein 30 H Urine Glucose (UA) Negative Urine Ketones 20 Urine Occult Blood Small H Urine Nitrate Negative Urine Bilirubin Negative Urine Urobilinogen 2.0 H Ur Leukocyte Esterase Negative Urine RBC 2 Urine WBC 4 Ur Squamous Epith Cells <1 Uric Acid Crystals Occasional H Urine Bacteria Occasional H Urine Mucus Few H Micro UA Comment Culture not ind Ur Microscopic Review Not Reportable Urine Culture Comments Culture not ind Urine Eosinophils Few H IgG IgA IgM Complement C3 Complement C4 Hepatitis A IgM Ab Hep Bs Antigen Hep B Core IgM Ab Hep C IgG Ab HIV 1&2 Ab/P24 Ag 4thGn Culture Results: Microbiology 02/27/18 20:00 Aerobic Blood Culture - Preliminary Blood - Peripheral No growth in 1 day Anaerobic Blood Culture - Preliminary No growth in 1 day 02/27/18 20:07 Aerobic Blood Culture - Preliminary Blood - Peripheral No growth in 1 day Anaerobic Blood Culture - Preliminary No growth in 1 day Imaging Studies: Impressions Chest CT 02/28/18 00:00 CONCLUSION: 1. Area of densely calcified pleural plaque involving the anterior aspect of the right upper lobe with adjacent parenchymal opacity and architectural distortion consistent with an area of scarring and rounded atelectasis. Given lack of prior imaging recommend follow-up imaging in 3-6 months to evaluate for stability. Medications: Active Medications Generic Name Dose Route Start Last Admin Trade Name Freq PRN Reason Stop Dose Admin Hydrocodone Bitart/Acetaminophen 1 tab 02/27/18 21:19 03/01/18 08:56 [place] 5/325 PO 1 tab Q4H PRN Administration PAIN 3-5 Budesonide/Formoterol Fumarate 2 puff 02/28/18 21:00 03/01/18 08:57 Symbicort 160/4.5 Mcg Inh INH 2 puff BID SHAMA Administration Levofloxacin/Dextrose 150 mls @ 100 mls/hr 02/28/18 20:00 02/28/18 22:30 Levaquin 750 Mg Premix Inj IV.SIG Infused Q24H SHAMA Infusion Sodium Chloride 1,000 mls @ 100 mls/hr 02/27/18 20:00 03/01/18 02:45 Ns Inj IV.CONT Not Given .Q10H SHAMA Senna/Docusate Sodium 1 tab 02/27/18 21:00 03/01/18 08:56 [place]-Colace PO 1 tab BID SHAMA Administration Sodium Chloride 2 ml 02/27/18 16:16 02/27/18 17:55 Ns Flush IV.FLUSH 2 ml PRN PRN Administration FLUSH AFTER USING IV ACCESS Objective Remarks: GENERAL: Well-nourished, well-developed middle-aged male patient, in no acute distress. SKIN: Warm and dry. HEAD: Normocephalic. EYES: No scleral icterus. No injection or drainage. NECK: Supple, trachea midline. CARDIOVASCULAR: Regular rate and rhythm without murmurs. RESPIRATORY: Breath sounds clear, equal bilaterally. Nonlabored at rest. GASTROINTESTINAL: Abdomen soft, non-tender, nondistended. EXTREMITIES: No cyanosis, or edema. MUSCULOSKELETAL: Adequate muscle tone. NEUROLOGICAL: No obvious focal deficit. Awake, alert, and oriented x3. PSYCHIATRIC: Appropriate mood and affect; insight and judgment normal. Assessment/Plan - Plan Mr. Louis is a pleasant 62-year-old male patient who [facility] eosin[facility] and to evaluate for Churg-Juan C syndrome. Patient has a history of asthma, with occasional exacerbations. His last episode was approximately 2 weeks ago. He is also had some mid back pain, related to picking up a mattress several weeks ago. The patient was on Aleve for approximately 4 days prior to developing midepigastric pain. The Aleve was stopped and he was given meloxicam and baclofen which she has been taking for the last 4-5 days. History of recent diagnosis of prostate cancer, due to start radiation at the end of the month. Hematology was consulted for leukocytosis with 50% eosinophilia. Plan: 1. Leukocytosis and eosinophilia, with acute onset. Likely reactive, further workup is pending. ESR is high at 115. IgG 1880, IgA 160 and IgM 37. Hepatitis and HIV panel were nonreactive. Mark 2 is pending. Pathology slide review is pending. 2. Asthma, denies any shortness of breath. Patient evaluated by pulmonology for CT chest that showed dense calcification with questionable scarring. Management per pulmonology. 3. Prostate cancer, reportedly diagnosed about 3 months ago. Per patient his [place] score was 6 and his PSA was 5. He was scheduled to start radiation at the end of this month. 4. Renal insufficiency, improvement with hydration. 5. Back pain, resolved at this time. 6. Repeat CBC in the a.m. Continue to await pending studies. - Attending Statement The exam, history, and the medical decision-making described in the above note were completed with the assistance of the mid-level provider. I reviewed and agree with the findings presented. I attest that I had a [id number] encounter with the patient on the same day, and personally performed and documented my assessment and findings in the medical record. Patient feeling better today. He stated that he is back to his normal self. He is eager to go home. He is afebrile. He has no pulmonary symptom. Review of CT of the chest with him which showed calcified pleural plaque in the right upper lobe. Patient stated that he had a PET CT scan done at [facility] a few months ago which did not show any uptake. This appeared to be a chronic finding. Sed rate and C-reactive protein elevated suggestive of reactive process. Flow cytometry is pending. There is still a number of tests that are pending. Pulmonology and infectious disease also following. If the flow cytometry did not show any abnormal immunophenotype he can be discharged from hematology standpoint if cleared by pulmonology and infectious disease. He can continue workup at the [facility].
--- NOTE | 2018-03-01 12:37 | P.PNIM ---
Subjective Interval history: Feels pretty good. No complaint of shortness of breath or chest pain. No unusual rash. Doing pretty good and wants to go home soon. No fevers or chills. Physical Exam Vital signs: Vital Signs 02/28/18 16:00 02/28/18 20:00 03/01/18 00:00 Temperature 98.0 F 97.7 F 98 F Pulse Rate 84 88 81 Respiratory Rate 16 20 18 Blood Pressure 142/70 H 137/85 139/79 Pulse Oximetry 95 98 98 03/01/18 04:00 03/01/18 08:00 03/01/18 12:00 Temperature 97.9 F 98.3 F 98.4 F Pulse Rate 84 86 89 Respiratory Rate 18 16 18 Blood Pressure 137/70 150/75 H 150/83 H Pulse Oximetry 98 98 99 Intake & Output 02/28/18 03/01/18 03/01/18 18:59 06:59 18:59 Intake Total 1000 / 1000 870 / 870 Balance 1000 / 1000 870 / 870 Weight 74.7 kg Intake: IV 1000 / 1000 150 / 150 NS Inj 1,000 ML @ 100 mls/hr IV 1000 / 1000 .CONT .Q10H [facility] Rx#:[id number] Levaquin 750 mg Premix Inj 150 150 / 150 ML @ 100 mls/hr IV.SIG Q24H [facility] Rx#:[id number] Oral 720 / 720 Other: # Voids 2 4 Date of Last Bowel Movement 02/27/18 02/27/18 Narrative: GENERAL: This is a well-nourished, well-developed patient, in no apparent distress. CARDIOVASCULAR: Regular rate and rhythm without murmurs, gallops, or rubs. RESPIRATORY: Clear to auscultation. Breath sounds equal bilaterally. No wheezes , rales, or rhonchi. GASTROINTESTINAL: Abdomen soft, non-tender, nondistended. Normal active bowel sounds MUSCULOSKELETAL: Extremities without clubbing, cyanosis, or edema. NEURO: Alert & Oriented x4 to person, place, time, situation. Moves all ext x4 Skin: No lesions no abnormal changes warm and dry. Results - Labs CBC & Chem 7: 02/28/18 05:29 02/28/18 05:29 Laboratory Results - last 24 hr 02/28/18 02/28/18 02/28/18 12:50 12:50 12:50 Troponin I Less than 0.02 L C-Reactive Protein 22.10 H Cancelled Vitamin B12 533 Procalcitonin 0.22 H Urine Color Urine Clarity Urine pH Ur Specific [place] Urine Protein Urine Glucose (UA) Urine Ketones Urine Occult Blood Urine Nitrate Urine Bilirubin Urine Urobilinogen Ur Leukocyte Esterase Urine RBC Urine WBC Ur Squamous Epith Cells Uric Acid Crystals Urine Bacteria Urine Mucus Micro UA Comment Ur Microscopic Review Urine Culture Comments Urine Eosinophils IgG 1880 H IgA 160 IgM 37 L Complement C3 152 Complement C4 23 Hepatitis A IgM Ab Hep Bs Antigen Hep B Core IgM Ab Hep C IgG Ab HIV 1&2 Ab/P24 Ag 4thGn 02/28/18 02/28/18 02/28/18 12:50 12:50 18:03 Troponin I C-Reactive Protein Vitamin B12 Procalcitonin Urine Color Yellow Urine Clarity Hazy H Urine pH 5.0 Ur Specific [place] 1.027 Urine Protein 30 H Urine Glucose (UA) Negative Urine Ketones 20 Urine Occult Blood Small H Urine Nitrate Negative Urine Bilirubin Negative Urine Urobilinogen 2.0 H Ur Leukocyte Esterase Negative Urine RBC 2 Urine WBC 4 Ur Squamous Epith Cells <1 Uric Acid Crystals Occasional H Urine Bacteria Occasional H Urine Mucus Few H Micro UA Comment Culture not ind Ur Microscopic Review Not Reportable Urine Culture Comments Culture not ind Urine Eosinophils IgG IgA IgM Complement C3 Complement C4 Hepatitis A IgM Ab Nonreactive Hep Bs Antigen Nonreactive Hep B Core IgM Ab Nonreactive Hep C IgG Ab Nonreactive HIV 1&2 Ab/P24 Ag 4thGn Nonreactive 03/01/18 04:20 Troponin I C-Reactive Protein Vitamin B12 Procalcitonin Urine Color Urine Clarity Urine pH Ur Specific [place] Urine Protein Urine Glucose (UA) Urine Ketones Urine Occult Blood Urine Nitrate Urine Bilirubin Urine Urobilinogen Ur Leukocyte Esterase Urine RBC Urine WBC Ur Squamous Epith Cells Uric Acid Crystals Urine Bacteria Urine Mucus Micro UA Comment Ur Microscopic Review Urine Culture Comments Urine Eosinophils Few H IgG IgA IgM Complement C3 Complement C4 Hepatitis A IgM Ab Hep Bs Antigen Hep B Core IgM Ab Hep C IgG Ab HIV 1&2 Ab/P24 Ag 4thGn Microbiology 02/27/18 20:00 Blood - Peripheral Aerobic Blood Culture - Preliminary No growth in 2 days 02/27/18 20:00 Blood - Peripheral Anaerobic Blood Culture - Preliminary No growth in 2 days 02/27/18 20:07 Blood - Peripheral Aerobic Blood Culture - Preliminary No growth in 2 days 02/27/18 20:07 Blood - Peripheral Anaerobic Blood Culture - Preliminary No growth in 2 days Assessment and Plan - Assessment (1) SIRS (systemic inflammatory response syndrome) Code(s): R65.10 - Systemic inflammatory response syndrome (SIRS) of non- infectious origin without acute organ dysfunction Status: Resolved (2) Eosinophilia Code(s): D72.1 - Eosinophilia Status: Acute (3) Renal insufficiency Code(s): N28.9 - Disorder of kidney and ureter, unspecified Status: Acute (4) Asthma Code(s): J45.909 - Unspecified asthma, uncomplicated Status: Chronic (5) Back pain Code(s): M54.9 - Dorsalgia, unspecified Status: Acute - Plan 59-year-old male was sent to the emergency room by his primary care physician in the [place] for continue workup for findings of hypereosinophia and leukocytosis. 1. Presenting SIRS: HR 114, WBC 27, Source-unclear. CT Abd/Pelvis w/ no acute findings. Urinalysis showed no active infection, CT chest showed area of densely calcified pleural plaquing involving the anterior aspect of the right upper lobe with adjacent parenchymal opacity consistent with a area of scarring and rounded atelectasis. Patient reports he is aware of this previous findings and [facility] no signs of malignancy There has not been any fevers documented. We will continue Levaquin for now until further evaluation and workup. Elevated CRP and procalcitonin 2. hyperEosinophilia: Eosinophilia possibly related to Asthma, however higher than expected. ?parasitic infection, however denies fever, chills, sick contacts, no recent travel. [facility]/o Churg-Juan C, however very rare and pt denies cough, night sweats or weight loss. Appreciate infectious disease and hematology recommendations and assistance in workup. Rule out infection however unlikely. Could be related to drug-induced allergy to recent use of Aleve which patient has not taken in the past previouslyrepeat CBC in the morning Appreciate pulmonary service assistance for further evaluation workup for Churg- Juan C syndrome. Per the patient [place] will prefer him going to like to know not to get the bronchoscopy as an outpatient and likely will not authorize clearance for procedure here. 3. Leukocytosis of questionable etiology as patient has not been on steroids in the past and there is no active signs of infection. Hematology oncology to assist in further workup to rule out T-cell lymphoma or other differential diagnosis. Check hepatitis panel HIV screening, patient counseled. Per hematology possible bone marrow biopsy pending repeat labs 4. Asthma, not in acute exacerbation: no c/o SOB, Albuterol Neb prn. 5. ELISE superimposed on chronic kidney disease stage III: Presenting creatinine 1.64 with improvement on IV fluid hydration overnight., 6. Back Pain: Musculoskeletal, reports injury after picking up mattress, continue analgesics/antiemetics as needed. Avoid NSAIDs at this point 7. DVT Prophylaxis: SCD/Teds Discharge Planning: Home when workup completed and when cleared by hematology and ID.
--- NOTE | 2018-03-01 15:57 | P.PN ---
Subjective Interval history: He is doing better. No wheezing now . WBC still high and eosinophils are 41. he will go to the [facility] ER for radiation and if Approved for Bronchoscopy it will need to be done at the [place] system Physical Exam Vital signs: Vital Signs 02/28/18 16:00 02/28/18 20:00 03/01/18 00:00 Temperature 98.0 F 97.7 F 98 F Pulse Rate 84 88 81 Respiratory Rate 16 20 18 Blood Pressure 142/70 H 137/85 139/79 Pulse Oximetry 95 98 98 03/01/18 04:00 03/01/18 08:00 03/01/18 12:00 Temperature 97.9 F 98.3 F 98.4 F Pulse Rate 84 86 94 H Respiratory Rate 18 16 18 Blood Pressure 137/70 150/75 H 150/83 H Pulse Oximetry 98 98 99 Intake & Output 02/28/18 03/01/18 03/01/18 18:59 06:59 18:59 Intake Total 1000 / 1000 870 / 870 Balance 1000 / 1000 870 / 870 Weight 74.7 kg Intake: IV 1000 / 1000 150 / 150 NS Inj 1,000 ML @ 100 mls/hr IV 1000 / 1000 .CONT .Q10H [facility] Rx#:[id number] Levaquin 750 mg Premix Inj 150 150 / 150 ML @ 100 mls/hr IV.SIG Q24H [facility] Rx#:[id number] Oral 720 / 720 Other: # Voids 2 4 Date of Last Bowel Movement 02/27/18 02/27/18 02/27/18 Narrative: GENERAL: This is a well-nourished, well-developed patient, in no apparent distress.Throat is clear. CARDIOVASCULAR: Regular rate and rhythm without murmurs, gallops, or rubs. RESPIRATORY: Clear to auscultation. Breath sounds equal bilaterally. No wheezes , rales, or rhonchi. GASTROINTESTINAL: Abdomen soft, non-tender, nondistended. Normal active bowel sounds MUSCULOSKELETAL: Extremities without clubbing, cyanosis, or edema. NEURO: Alert & Oriented x4 to person, place, time, situation. Moves all ext x4 Skin: No lesions no abnormal changes warm and dry. Results - Labs CBC & Chem 7: 02/28/18 05:29 02/28/18 05:29 Laboratory Results - last 24 hr 02/28/18 02/28/18 03/01/18 12:50 18:03 04:20 Procalcitonin 0.22 H Urine Color Yellow Urine Clarity Hazy H Urine pH 5.0 Ur Specific [place] 1.027 Urine Protein 30 H Urine Glucose (UA) Negative Urine Ketones 20 Urine Occult Blood Small H Urine Nitrate Negative Urine Bilirubin Negative Urine Urobilinogen 2.0 H Ur Leukocyte Esterase Negative Urine RBC 2 Urine WBC 4 Ur Squamous Epith Cells <1 Uric Acid Crystals Occasional H Urine Bacteria Occasional H Urine Mucus Few H Micro UA Comment Culture not ind Ur Microscopic Review Not Reportable Urine Culture Comments Culture not ind Urine Eosinophils Few H Microbiology 02/27/18 20:00 Blood - Peripheral Aerobic Blood Culture - Preliminary No growth in 2 days 02/27/18 20:00 Blood - Peripheral Anaerobic Blood Culture - Preliminary No growth in 2 days 02/27/18 20:07 Blood - Peripheral Aerobic Blood Culture - Preliminary No growth in 2 days 02/27/18 20:07 Blood - Peripheral Anaerobic Blood Culture - Preliminary No growth in 2 days Assessment and Plan - Assessment (1) Prostate cancer Code(s): C61 - Malignant neoplasm of prostate Status: Acute (2) SIRS (systemic inflammatory response syndrome) Code(s): R65.10 - Systemic inflammatory response syndrome (SIRS) of non- infectious origin without acute organ dysfunction Status: Resolved (3) Eosinophilia Code(s): D72.1 - Eosinophilia Status: Acute (4) Renal insufficiency Code(s): N28.9 - Disorder of kidney and ureter, unspecified Status: Acute (5) Asthma Code(s): J45.909 - Unspecified asthma, uncomplicated Status: Chronic (6) Back pain Code(s): M54.9 - Dorsalgia, unspecified Status: Acute - Plan 1. Cont Symbicort 160/4.5 mcg, 2puffs BID. 2. Cont Levaquin for 5 days 3. OK to go home for OP F/U and plan Bronchoscopy as OP. 4. Will see him as OP in 3 weeks. 5. PFT in am before discharge
[2018-03-02] MEDS: Sod Chloride 0.9% Inj 1,000 ML IV.CONT SCH ×3 (01:07→20:40)
[2018-03-02 07:06] LABS: Baso # (Auto) 0.1 th/mm3 (0.0-0.2); Baso % (Auto) 0.3 % (0.0-2.0); Eos # (Auto) 15.9 th/mm3 (0.0-0.4); Eos % (Auto) 49.5 % (0.0-4.0); Hematocrit 37.2 % (39.0-51.0); Hemoglobin 12.4 gm/dL (13.0-17.0); Lymph # (Auto) 2.2 th/mm3 (1.0-4.8); Lymph % (Auto) 6.7 % (9.0-44.0); Mean Corpuscular HGB Conc 33.4 % (32.0-36.0); Mean Corpuscular Hemoglobin 30.9 pg (27.0-34.0); Mean Corpuscular Volume 92.5 fL (80.0-100.0); Mean Platelet Volume 8.6 fL (7.0-11.0); Mono # (Auto) 1.3 th/mm3 (0.0-0.9); Mono % (Auto) 4.1 % (0.0-8.0); Neut # (Auto) 12.7 th/mm3 (1.8-7.7); Neut % (Auto) 39.4 % (16.0-70.0); Platelet Count 406 th/mm3 (150-450); Red Blood Count 4.02 mil/mm3 (4.50-5.90); Red Cell Distribution Width 13.8 % (11.6-17.2); White Blood Count 32.2 th/mm3 (4.0-11.0)
[2018-03-02 07:35] LABS: Calcium 9.2 mg/dL (8.5-10.1); Carbon Dioxide 29.4 meq/L (21.0-32.0); Potassium 5.6 meq/L (3.5-5.1)
[2018-03-02] MEDS: Senna/Docusate Sodium 8.6/50 MG Tablet PO SCH ×2 (08:09→20:40)
[2018-03-02] MEDS: Budesonide-Formoterol 160/4.5 MCG 6 GM Inhaler INH SCH ×2 (08:12→21:17)
[2018-03-02 08:20] LABS: Eosinophils 54 % (0-4); Lymphocytes 5 % (9-44); Monocytes 4 % (0-8)
[2018-03-02 08:21] LABS: Platelet Estimate Normal (Normal); Platelet Morphology Normal (Normal)
--- NOTE | 2018-03-02 10:15 | P.PN ---
Subjective Interval history: Patient doing well. Reports that he is tolerating p.o., voiding/stooling well no overnight events per RN. Physical Exam Vital signs: Vital Signs 03/01/18 12:00 03/01/18 16:00 03/01/18 20:00 Temperature 98.4 F 98.7 F 97.7 F Pulse Rate 94 H 91 H 91 H Respiratory Rate 18 16 16 Blood Pressure 150/83 H 150/73 H 115/63 Pulse Oximetry 99 98 98 03/02/18 00:00 03/02/18 09:16 Temperature 98 F 97.3 F L Pulse Rate 86 96 H Respiratory Rate 16 16 Blood Pressure 126/64 144/74 H Pulse Oximetry 96 98 Intake & Output 03/01/18 03/02/18 03/02/18 18:59 06:59 18:59 Intake Total 630 / 630 Balance 630 / 630 Intake: IV 150 / 150 Levaquin 750 mg Premix Inj 150 150 / 150 ML @ 100 mls/hr IV.SIG Q24H [facility] Rx#:[id number] Oral 480 / 480 Other: # Voids 3 4 Date of Last Bowel Movement 02/27/18 02/27/18 02/27/18 Narrative: GENERAL: This is a well-nourished, AAM, in NAD CARDIOVASCULAR: Regular rate and rhythm, S1 and S2 without murmurs, gallops, or rubs. RESPIRATORY: Clear to auscultationx2 GASTROINTESTINAL: Abdomen soft, non-tender, nondistended. + bowel sounds MUSCULOSKELETAL: Extremities without clubbing, cyanosis, or edema. NEURO: Alert & Oriented x4 to person, place, time, situation. Moves all ext x4 EXT: no edema or cyanosis Results - Labs CBC & Chem 7: 03/02/18 04:18 03/02/18 04:18 Laboratory Results - last 24 hr 03/02/18 03/02/18 04:18 04:18 WBC 32.2 H RBC 4.02 L Hgb 12.4 L Hct 37.2 L MCV 92.5 MCH 30.9 MCHC 33.4 RDW 13.8 Plt Count 406 MPV 8.6 Prelim Diff (Auto) Slide review pending Neut % (Auto) 39.4 Lymph % (Auto) 6.7 L [place] % (Auto) 4.1 Eos % (Auto) 49.5 H Baso % (Auto) 0.3 Neut # (Auto) 12.7 H Lymph # (Auto) 2.2 [place] # (Auto) 1.3 H Eos # (Auto) 15.9 H Baso # (Auto) 0.1 WBC Differential Manual diff final Seg Neuts % (Manual) 37 Lymphocytes % (Manual) 5 L Monocytes % (Manual) 4 Eosinophils % (Manual) 54 H Abs Neuts (Manual) 11.9 H Differential Comment . Platelet Estimate Normal Platelet Morphology Normal Sodium 137 Potassium 5.6 H D Chloride 100 Carbon Dioxide 29.4 Anion Gap 8 BUN 17 Creatinine 1.12 Estimated GFR 80 L Random Glucose 83 Calcium 9.2 D Microbiology 02/27/18 20:00 Blood - Peripheral Aerobic Blood Culture - Preliminary No growth in 2 days 02/27/18 20:00 Blood - Peripheral Anaerobic Blood Culture - Preliminary No growth in 2 days 02/27/18 20:07 Blood - Peripheral Aerobic Blood Culture - Preliminary No growth in 2 days 02/27/18 20:07 Blood - Peripheral Anaerobic Blood Culture - Preliminary No growth in 2 days Assessment and Plan - Assessment (1) SIRS (systemic inflammatory response syndrome) Code(s): R65.10 - Systemic inflammatory response syndrome (SIRS) of non- infectious origin without acute organ dysfunction Status: Resolved (2) Eosinophilia Code(s): D72.1 - Eosinophilia Status: Acute (3) Renal insufficiency Code(s): N28.9 - Disorder of kidney and ureter, unspecified Status: Acute (4) Asthma Code(s): J45.909 - Unspecified asthma, uncomplicated Status: Chronic (5) Back pain Code(s): M54.9 - Dorsalgia, unspecified Status: Acute - Plan 59-year-old AAM was sent [facility] for findings of Hypereosinophia and Leukocytosis, admitted for inpatient management of SIRS with unclear source, HD#4 1. SIRSs Source-unclear CT Abd/Pelvis w/ no acute findings U/A Neg CT chest showed area of densely calcified pleural plaquing involving the anterior aspect of the right upper lobe with adjacent parenchymal opacity consistent with a area of scarring and rounded atelectasis. (Patient reports this is a previous findings and had a [facility] that showed no signs of malignancy) Bld Cx Neg x4 days x4 Bld Fungal Cx pending Cont. Levaquin for now until further evaluation and workup, started on 02/28 Elevated CRP and procalcitonin, F/U in AM 2. HyperEosinophilia Eosinophilia possibly related to Asthma, however higher than expected Appreciate ID and Hematology recommendations and assistance in workup. Rule out infection however unlikely. Appreciate pulmonary service assistance for further evaluation workup for Churg- Juan C syndrome. Per the [facility] to [facility] to know not to get the bronchoscopy as an outpatient and likely will not authorize clearance for procedure here. Per ID 02/28: Check eosinophils in urine. Check Stool studies to r/o parasites. Check Fungal and AFB blood infections. Check Aspergillus as cause for Pulm Eosinophilia syndrome. Consult Pulmonology may need Bronch if eosinophilia persists send BAL eosinophils count and cultures. Fungal studies Continue Levaquin for now. Check HIV screen Check Hepatitis panel. Check Immuneglobulins particularly IgE. Follow cultures and tests Follow clinical course. 3. Leukocytosis, worsening WBC 32.2 from 27.9 Unclear etiology, likely reactive Hematology oncology to assist in further workup to rule out T-cell lymphoma or other differential diagnosis. Negative hepatitis panel and negative HIV, pending further serology Per hematology possible bone marrow biopsy pending repeat labs Per HemOnc 03/01: Leukocytosis and eosinophilia, with acute onset. Likely reactive, further workup is pending. ESR is high at 115. IgG 1880, IgA 160 and IgM 37. Hepatitis and HIV panel were nonreactive. Mark 2 is pending. Pathology slide review is pending. Asthma, denies any shortness of breath. Patient evaluated by pulmonology for CT chest that showed dense calcification with questionable scarring. Management per pulmonology. Prostate cancer, reportedly diagnosed about 3 months ago. Per patient his [place] score was 6 and his PSA was 5. He was scheduled to start radiation at the end of this month. Renal insufficiency, improvement with hydration. Back pain, resolved at this time. Repeat CBC in the a.m. Continue to await pending studies. 4. Hx of Asthma Cont. Symbicort BID and Albuterol Neb PRN 5. ELISE superimposed on chronic kidney disease stage III, resolved Cr 1.12 today, 1.64 on admission s/p IVF 6. Hyperkalemia, K5.[address] on Tele Will give Alb 10mg in 4nl NL Recheck this PM at 1300 7. Back Pain Musculoskeletal Continue analgesics/antiemetics as needed Avoid NSAIDS due to ELISE 8. DVT Prophylaxis: SCD/Teds Per Pulm 03/01: Cont Symbicort 160/4.5 mcg, 2puffs BID. Cont Levaquin for 5 days OK to go home for OP F/U and plan Bronchoscopy as OP. Will see him as OP in 3 weeks. PFT in am before discharge 9. Dispo: Recheck K at 1PM, cont. Levaquin to complete 5 days, D/C pending HemOnc and ID reccs Code Status: full Discussed Condition With: patient, Rn, Cm
--- NOTE | 2018-03-02 14:50 | P.PNID ---
Subjective Remarks: is a 62 y/o AAM with a PMHx of Prostate CA, Hyperlipidemia and late diagnosis of Asthma who was referred to the ER by the OR for eosinophilia and to workup hypereosinophilia and r/o Churg-Juan C Syndrome. Pt states he was seen at the OR for routine blood work and was told his eosinophils were elevated at 50%. Previous lab work in February of last year was normal per patient. Patient reports that he recently injured his back while picking up a mattress. He reports taking OTC Aleve prn w/ some relief, however developed abdominal pain and stopped taking Aleve 1 wk ago. His PCP notes indicate concern for NSAID gastritis. PCP at OR changed his pain medications to Meloxicam and Baclofen with some relief of pain. PCP sent labs with WBC 30, high eosinophils. On arrival, BP 125/64, HR 114, O2 sat 100% on RA, Afebrile. WBC 27. Eosinophils 48%. INR 1.2. Creatinine 1.64, no previous labs for comparison. CT Abd/Pelvis w/ no acute abnormalities. consulted by ER physician, recommended antibiotics and eval w/ ID. Pt without complaints at this time. Pertinent positives and negatives: Denies fever, chills, cough, sick contacts, night sweats or recent travel. Family history of Asthma: brother and father. 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 Used to live in [facility] prior to moving to [place]. Patient reports exposure to mold in his house due to water damage. Patient also reports seeing an beverage specialist and was told he was allergic to dog dander. He gave away his dog to someone else and since then has noted improvement in respiratory symptoms. he reports using Symbicort less. No antibiotic exposure prior to admission. No systemic or oral steroids prior to admission. No diarrhea or GI symptoms such as cramps or bloating or parasites in stool No skin issues such as dermatitis No Resp symptoms at present time No cough or phlegm No muscle aches to suggest dermatomyositis or eosinophilic myositis syndromes. ID consulted for Evaluation and MMent of hypereosinophilia and leucocytosis/ SIRS. Overnight events reviewed WBC increased further. Eosinophils continue to be high. Needs bronchoscopy in house as diagnosis ranges from malignancy to Churg Juan C to Fungal or parasitic infections. No diarrhea Urine eosinophils positive but cannot explain the degree of leucocytosis and eosinophilia siddhartha after stopping inciting NSAIDs etc No rash Breathing better. No cough. High ESR High CRP Procalcitonin elevated as well (malignancy vs infection) Antibiotics: Levaquin Lines: Lines ok Past Medical History: reviewed Allergies/Adverse Reactions: Allergies No Known Allergies Allergy (Verified 02/27/18 16:16) Objective Vital Signs 03/01/18 16:00 03/01/18 20:00 03/02/18 00:00 Temperature 98.7 F 97.7 F 98 F Pulse Rate 91 H 91 H 86 Respiratory Rate 16 16 16 Blood Pressure 150/73 H 115/63 126/64 Pulse Oximetry 98 98 96 03/02/18 09:16 03/02/18 12:48 03/02/18 13:44 Temperature 97.3 F L 97.1 F L Pulse Rate 96 H 90 101 H Respiratory Rate 16 16 16 Blood Pressure 144/74 H 137/71 Pulse Oximetry 98 96 03/02/18 14:14 03/02/18 14:18 03/02/18 14:22 Temperature Pulse Rate 109 H 103 H 108 H Respiratory Rate 16 16 16 Blood Pressure Pulse Oximetry Intake & Output 03/01/18 03/02/18 03/02/18 18:59 06:59 18:59 Intake Total 630 / 630 Balance 630 / 630 Intake: IV 150 / 150 Levaquin 750 mg Premix Inj 150 150 / 150 ML @ 100 mls/hr IV.SIG Q24H [facility] Rx#:[id number] Oral 480 / 480 Other: # Voids 3 4 Date of Last Bowel Movement 02/27/18 02/27/18 02/27/18 02/27/18 20:00 Blood - Peripheral Aerobic Blood Culture - Preliminary No growth in 3 days 02/27/18 20:00 Blood - Peripheral Anaerobic Blood Culture - Preliminary No growth in 3 days 02/27/18 20:07 Blood - Peripheral Aerobic Blood Culture - Preliminary No growth in 3 days 02/27/18 20:07 Blood - Peripheral Anaerobic Blood Culture - Preliminary No growth in 3 days 03/02/18 10:14 Stool Cryptosporidium Antigen - Pending 03/02/18 10:14 Stool Giardia Antigen (JAVIER) - Pending 02/28/18 12:50 Blood - Peripheral Blood Fungal Culture - Pending 02/28/18 12:50 Blood - Peripheral Blood Fungal Culture - Pending Lab - Hematology Results 03/02/18 04:18 WBC 32.2 H RBC 4.02 L Hgb 12.4 L Hct 37.2 L MCV 92.5 MCH 30.9 MCHC 33.4 RDW 13.8 Plt Count 406 MPV 8.6 Prelim Diff (Auto) Slide review pending Neut % (Auto) 39.4 Lymph % (Auto) 6.7 L [place] % (Auto) 4.1 Eos % (Auto) 49.5 H Baso % (Auto) 0.3 Neut # (Auto) 12.7 H Lymph # (Auto) 2.2 [place] # (Auto) 1.3 H Eos # (Auto) 15.9 H Baso # (Auto) 0.1 WBC Differential Manual diff final Seg Neuts % (Manual) 37 Lymphocytes % (Manual) 5 L Monocytes % (Manual) 4 Eosinophils % (Manual) 54 H Abs Neuts (Manual) 11.9 H Differential Comment . Platelet Estimate Normal Platelet Morphology Normal Lab - Chemistry Results 02/28/18 03/02/18 12:50 04:18 Sodium 137 Potassium 5.6 H D Chloride 100 Carbon Dioxide 29.4 Anion Gap 8 BUN 17 Creatinine 1.12 Estimated GFR 80 L Random Glucose 83 Calcium 9.2 D Procalcitonin 0.22 H Imaging: ITS Impressions Chest X-Ray 02/27/18 00:00 CONCLUSION: Probable right lung pneumonia. Follow up is recommended with repeat chest x-ray 4-6 weeks after appropriate clinical therapy. Abdomen/Pelvis CT 02/27/18 16:16 CONCLUSION: 1. No definite acute abnormality seen. 2. Possible mild hiatal hernia. Chest CT 02/28/18 00:00 CONCLUSION: 1. Area of densely calcified pleural plaque involving the anterior aspect of the right upper lobe with adjacent parenchymal opacity and architectural distortion consistent with an area of scarring and rounded atelectasis. Given lack of prior imaging recommend follow-up imaging in 3-6 months to evaluate for stability. Physical Exam: GENERAL: Well-nourished well-developed, not in acute distress SKIN: Cool and dry, no generalized rash HEAD: Atraumatic. Normocephalic. No temporal or scalp tenderness. EYES: Pupils equal round and reactive. Scleral icterus. No injection or drainage. No petechia ENT: Nothing abnormal detected NECK: Trachea midline. Supple, nontender, no meningeal signs. CARDIOVASCULAR: HS audible. RESPIRATORY: Clear to auscultation bilaterally. GASTROINTESTINAL: Abdomen soft nontender. MUSCULOSKELETAL: Extremities without clubbing, cyanosis. NEUROLOGICAL: Alert oriented 3. Nonfocal. Psych cooperative IV line sites ok. Assessment and Plan - Plan Hypereosinophilia: DDx: Rule out infections such as parasites,fungal infections. Drug induced allergy: check urine eosinophils. Baseline labs 1 month back were negative. With Cr being high check for urine eosinophils. Nothing to suggest Eosinophilia myositis syndromes. Possible Pulm Eosinophilia syndromes. Rule out T cell lymphoma if persistent eosinophilia and no cause found. Leucocytosis: was not on steroids likely part of eosinophilia process. Rule out T cell lymphoma. Oncology on board. Late diagnosis of Asthma. Rule out Churgg Juan C syndrome. Acute renal failure: was on NSAIDS ? allergic reaction to drug. recs: DC Levaquin. Clinically does not behave like acute bacterial infection although WBC high. Follow Fungal and AFB blood infections. Follow Aspergillus as cause for Pulm Eosinophilia syndrome. mary alice Valerio would recommend bronch as differential diagnosis includes malignancy, rheumatological or infections etc. Follow Fungal studies pt aware of HIV and Hepatitis being negative. Follow Immunoglobulins IgE. Follow clinical course. mary alice Valerio: he will get bronch in hospital. mary alice orthopedic technician as well as CM: bronch does not need preauthorization to be done in hospital as [facility] and it is medically necessary to rule out Churg Juan C and other diagnosis for which [facility] sent patient to [place],. mary alice RN mary alice patient plan for the day MARY ALICE OLIVEROS Oncology
--- NOTE | 2018-03-02 15:45 | P.PNONC ---
Subjective Interval history: Afebrile Patient reports he feels well Denies pain Breathing okay Very anxious over whether or not the [facility] will [facility] for his bronchoscopy Objective Vital Signs/Intake & Output: Vital Signs 03/01/18 16:00 03/01/18 20:00 03/02/18 00:00 Temperature 98.7 F 97.7 F 98 F Pulse Rate 91 H 91 H 86 Respiratory Rate 16 16 16 Blood Pressure 150/73 H 115/63 126/64 Pulse Oximetry 98 98 96 03/02/18 09:16 03/02/18 12:48 03/02/18 13:44 Temperature 97.3 F L 97.1 F L Pulse Rate 96 H 90 101 H Respiratory Rate 16 16 16 Blood Pressure 144/74 H 137/71 Pulse Oximetry 98 96 03/02/18 14:14 03/02/18 14:18 03/02/18 14:22 Temperature Pulse Rate 109 H 103 H 108 H Respiratory Rate 16 16 16 Blood Pressure Pulse Oximetry Intake & Output 03/01/18 03/02/18 03/02/18 18:59 06:59 18:59 Intake Total 630 / 630 Balance 630 / 630 Intake: IV 150 / 150 Levaquin 750 mg Premix Inj 150 150 / 150 ML @ 100 mls/hr IV.SIG Q24H [facility] Rx#:[id number] Oral 480 / 480 Other: # Voids 3 4 Date of Last Bowel Movement 02/27/18 02/27/18 02/27/18 Result Diagrams: 03/02/18 04:18 03/02/18 14:47 Laboratory Results: Laboratory Results - last 24 hr 03/02/18 03/02/18 04:18 04:18 WBC 32.2 H RBC 4.02 L Hgb 12.4 L Hct 37.2 L MCV 92.5 MCH 30.9 MCHC 33.4 RDW 13.8 Plt Count 406 MPV 8.6 Prelim Diff (Auto) Slide review pending Neut % (Auto) 39.4 Lymph % (Auto) 6.7 L [place] % (Auto) 4.1 Eos % (Auto) 49.5 H Baso % (Auto) 0.3 Neut # (Auto) 12.7 H Lymph # (Auto) 2.2 [place] # (Auto) 1.3 H Eos # (Auto) 15.9 H Baso # (Auto) 0.1 WBC Differential Manual diff final Seg Neuts % (Manual) 37 Lymphocytes % (Manual) 5 L Monocytes % (Manual) 4 Eosinophils % (Manual) 54 H Abs Neuts (Manual) 11.9 H Differential Comment . Platelet Estimate Normal Platelet Morphology Normal Sodium 137 Potassium 5.6 H D Chloride 100 Carbon Dioxide 29.4 Anion Gap 8 BUN 17 Creatinine 1.12 Estimated GFR 80 L Random Glucose 83 Calcium 9.2 D Culture Results: Microbiology 02/27/18 20:00 Aerobic Blood Culture - Preliminary Blood - Peripheral No growth in 3 days Anaerobic Blood Culture - Preliminary No growth in 3 days 02/27/18 20:07 Aerobic Blood Culture - Preliminary Blood - Peripheral No growth in 3 days Anaerobic Blood Culture - Preliminary No growth in 3 days Medications: Active Medications Generic Name Dose Route Start Last Admin Trade Name Freq PRN Reason Stop Dose Admin Hydrocodone Bitart/Acetaminophen 1 tab 02/27/18 21:19 03/02/18 11:48 [place] 5/325 PO 1 tab Q4H PRN Administration PAIN 3-5 Al Hydroxide/Mg Hydroxide 30 ml 02/27/18 19:36 03/02/18 08:09 Milk Of Magnesia Liq PO 30 ml Q12H PRN Administration Mild Constipation Budesonide/Formoterol Fumarate 2 puff 02/28/18 21:00 03/02/18 08:12 Symbicort 160/4.5 Mcg Inh INH 2 puff BID [facility] Administration Sodium Chloride 1,000 mls @ 100 mls/hr 02/27/18 20:00 03/02/18 08:11 Ns Inj IV.CONT Not Given .Q10H [facility] Lactulose 30 ml 02/27/18 19:36 03/02/18 08:09 Lactulose Liq PO 30 ml DAILY PRN Administration SEVERE CONSITIPATION Senna/Docusate Sodium 1 tab 02/27/18 21:00 03/02/18 08:09 Mar[place]uy-Colace PO 1 tab BID SHAMA Administration Sodium Chloride 2 ml 02/27/18 16:16 02/27/18 17:55 Ns Flush IV.FLUSH 2 ml PRN PRN Administration FLUSH AFTER USING IV ACCESS Objective Remarks: GENERAL: Middle-age male sitting up in chair at bedside in no acute distress SKIN: Warm and dry. HEAD: Normocephalic. EYES: No scleral icterus. No injection or drainage. NECK: Supple, trachea midline. CARDIOVASCULAR: Regular rate and rhythm without murmurs. RESPIRATORY: Clear posteriorly. Mildly diminished at bases. GASTROINTESTINAL: Abdomen soft, non-tender, nondistended. EXTREMITIES: No cyanosis, or edema. MUSCULOSKELETAL: Adequate muscle tone. NEUROLOGICAL: No obvious focal deficit. Awake, alert, and oriented x3. Assessment/Plan - Plan Mr. Louis is a pleasant 62-year-old male patient who was referred to the hospital from the [place] for evaluation of leukocytosis eosinophilia and to evaluate for Churg-Juan C syndrome. Patient has a history of asthma, with occasional exacerbations. His last episode was approximately 2 weeks ago. He is also had some mid back pain, related to picking up a mattress several weeks ago. The patient was on Aleve for approximately 4 days prior to developing midepigastric pain. The Aleve was stopped and he was given meloxicam and baclofen which she has been taking for the last 4-5 days. History of recent diagnosis of prostate cancer, due to start radiation at the end of the month. Hematology was consulted for leukocytosis with 50% eosinophilia. Plan: 1. Mildly worsened leukocytosis noted today. Patient will have bronchoscopy done prior to discharge. Discussed with Dr. Cifuentes 2. Awaiting peripheral flow cytometry. Monitor CBC. 3. Prostate cancer, reportedly diagnosed about 3 months ago. Per patient his Mclean score was 6 and his PSA was 5. He was scheduled to start radiation at the end of this month. - Attending Statement The exam, history, and the medical decision-making described in the above note were completed with the assistance of the mid-level provider. I reviewed and agree with the findings presented. I attest that I had a [id number] encounter with the patient on the same day, and personally performed and documented my assessment and findings in the medical record.Feeling better. He is eager to go home. WBC trended up slightly. Flowcytometry is still pending. Jak2 pending. Await bronchoscopy prior to d/c.
[2018-03-02 15:53] LABS: Calcium 8.6 mg/dL (8.5-10.1); Carbon Dioxide 28.2 meq/L (21.0-32.0); Potassium 4.1 meq/L (3.5-5.1)
--- NOTE | 2018-03-02 18:52 | P.PN ---
Subjective Interval history: he is feeling better. No fever. Has some wheezing still .Off O2 sat 96. Discussed bronch and biopsy and risks of bronchoscopy incl Bleeding , Pneumothorax and Arrhythmia. Physical Exam Vital signs: Vital Signs 03/01/18 20:00 03/02/18 00:00 03/02/18 09:16 Temperature 97.7 F 98 F 97.3 F L Pulse Rate 91 H 86 96 H Respiratory Rate 16 16 16 Blood Pressure 115/63 126/64 144/74 H Pulse Oximetry 98 96 98 03/02/18 12:48 03/02/18 13:44 03/02/18 14:14 Temperature 97.1 F L Pulse Rate 90 101 H 109 H Respiratory Rate 16 16 16 Blood Pressure 137/71 Pulse Oximetry 96 03/02/18 14:18 03/02/18 14:22 03/02/18 16:32 Temperature 97.6 F Pulse Rate 103 H 108 H 89 Respiratory Rate 16 16 16 Blood Pressure 136/74 Pulse Oximetry 100 Intake & Output 03/01/18 03/02/18 03/02/18 18:59 06:59 18:59 Intake Total 630 / 630 Balance 630 / 630 Intake: IV 150 / 150 Levaquin 750 mg Premix Inj 150 150 / 150 ML @ 100 mls/hr IV.SIG Q24H [facility] Rx#:[id number] Oral 480 / 480 Other: # Voids 3 4 Date of Last Bowel Movement 02/27/18 02/27/18 02/27/18 Narrative: GENERAL: This is a well-nourished, AAM, in NAD CARDIOVASCULAR: Regular rate and rhythm, S1 and S2 without murmurs, gallops, or rubs. RESPIRATORY: Distant breath sounds with Occ Wheeze. GASTROINTESTINAL: Abdomen soft, non-tender, nondistended. + bowel sounds MUSCULOSKELETAL: Extremities without clubbing, cyanosis, or edema. NEURO: Alert & Oriented x4 to person, place, time, situation. Moves all ext x4 EXT: no edema or cyanosis Results - Labs CBC & Chem 7: 03/02/18 04:18 03/02/18 14:47 Laboratory Results - last 24 hr 02/28/18 03/02/18 03/02/18 12:50 04:18 04:18 WBC 32.2 H RBC 4.02 L Hgb 12.4 L Hct 37.2 L MCV 92.5 MCH 30.9 MCHC 33.4 RDW 13.8 Plt Count 406 MPV 8.6 Prelim Diff (Auto) Slide review pending Neut % (Auto) 39.4 Lymph % (Auto) 6.7 L [place] % (Auto) 4.1 Eos % (Auto) 49.5 H Baso % (Auto) 0.3 Neut # (Auto) 12.7 H Lymph # (Auto) 2.2 [place] # (Auto) 1.3 H Eos # (Auto) 15.9 H Baso # (Auto) 0.1 WBC Differential Manual diff final Seg Neuts % (Manual) 37 Lymphocytes % (Manual) 5 L Monocytes % (Manual) 4 Eosinophils % (Manual) 54 H Abs Neuts (Manual) 11.9 H Differential Comment . Platelet Estimate Normal Platelet Morphology Normal Sodium 137 Potassium 5.6 H D Chloride 100 Carbon Dioxide 29.4 Anion Gap 8 BUN 17 Creatinine 1.12 Estimated GFR 80 L Random Glucose 83 Calcium 9.2 D JOHN Screen Neg 03/02/18 14:47 WBC RBC Hgb Hct MCV MCH MCHC RDW Plt Count MPV Prelim Diff (Auto) Neut % (Auto) Lymph % (Auto) [place] % (Auto) Eos % (Auto) Baso % (Auto) Neut # (Auto) Lymph # (Auto) [place] # (Auto) Eos # (Auto) Baso # (Auto) WBC Differential Seg Neuts % (Manual) Lymphocytes % (Manual) Monocytes % (Manual) Eosinophils % (Manual) Abs Neuts (Manual) Differential Comment Platelet Estimate Platelet Morphology Sodium 136 Potassium 4.1 D Chloride 99 Carbon Dioxide 28.2 Anion Gap 9 BUN 17 Creatinine 1.07 Estimated GFR 85 L Random Glucose 114 H Calcium 8.6 JOHN Screen Microbiology 02/27/18 20:00 Blood - Peripheral Aerobic Blood Culture - Preliminary No growth in 3 days 02/27/18 20:00 Blood - Peripheral Anaerobic Blood Culture - Preliminary No growth in 3 days 02/27/18 20:07 Blood - Peripheral Aerobic Blood Culture - Preliminary No growth in 3 days 02/27/18 20:07 Blood - Peripheral Anaerobic Blood Culture - Preliminary No growth in 3 days Assessment and Plan - Assessment (1) Prostate cancer Code(s): C61 - Malignant neoplasm of prostate Status: Acute (2) SIRS (systemic inflammatory response syndrome) Code(s): R65.10 - Systemic inflammatory response syndrome (SIRS) of non- infectious origin without acute organ dysfunction Status: Resolved (3) Eosinophilia Code(s): D72.1 - Eosinophilia Status: Acute (4) Renal insufficiency Code(s): N28.9 - Disorder of kidney and ureter, unspecified Status: Acute (5) Asthma Code(s): J45.909 - Unspecified asthma, uncomplicated Status: Chronic (6) Back pain Code(s): M54.9 - Dorsalgia, unspecified Status: Acute - Plan 1. Cont Symbicort 160/4.5 mcg, 2puffs BID. 2. Cont Levaquin PO. 3. Planned bronchoscopy with biopsy in am. 4. D/W Dr Cifuentes and Dr Solano. 5. PFT today . 6. Hold anticoagulants.
--- NOTE | 2018-03-02 22:13 | P.PN ---
Subjective Interval history: Not seen Physical Exam Vital signs: Vital Signs 03/02/18 00:00 03/02/18 09:16 03/02/18 12:48 Temperature 98 F 97.3 F L 97.1 F L Pulse Rate 86 96 H 90 Respiratory Rate 16 16 16 Blood Pressure 126/64 144/74 H 137/71 Pulse Oximetry 96 98 96 03/02/18 13:44 03/02/18 14:14 03/02/18 14:18 Temperature Pulse Rate 101 H 109 H 103 H Respiratory Rate 16 16 16 Blood Pressure Pulse Oximetry 03/02/18 14:22 03/02/18 16:32 Temperature 97.6 F Pulse Rate 108 H 89 Respiratory Rate 16 16 Blood Pressure 136/74 Pulse Oximetry 100 Intake & Output 03/02/18 03/02/18 03/03/18 06:59 18:59 06:59 Intake Total 630 / 630 Balance 630 / 630 Intake: IV 150 / 150 Levaquin 750 mg Premix Inj 150 150 / 150 ML @ 100 mls/hr IV.SIG Q24H SHAMA Rx#:[id number] Oral 480 / 480 Other: # Voids 4 Date of Last Bowel Movement 02/27/18 02/27/18 Narrative: GENERAL: This is a well-nourished, AAM, in NAD CARDIOVASCULAR: Regular rate and rhythm, S1 and S2 without murmurs, gallops, or rubs. RESPIRATORY: Distant breath sounds with Occ Wheeze. GASTROINTESTINAL: Abdomen soft, non-tender, nondistended. + bowel sounds MUSCULOSKELETAL: Extremities without clubbing, cyanosis, or edema. NEURO: Alert & Oriented x4 to person, place, time, situation. Moves all ext x4 EXT: no edema or cyanosis Results - Labs CBC & Chem 7: 03/02/18 04:18 03/02/18 14:47 Laboratory Results - last 24 hr 02/28/18 03/02/18 03/02/18 12:50 04:18 04:18 WBC 32.2 H RBC 4.02 L Hgb 12.4 L Hct 37.2 L MCV 92.5 MCH 30.9 MCHC 33.4 RDW 13.8 Plt Count 406 MPV 8.6 Prelim Diff (Auto) Slide review pending Neut % (Auto) 39.4 Lymph % (Auto) 6.7 L [place] % (Auto) 4.1 Eos % (Auto) 49.5 H Baso % (Auto) 0.3 Neut # (Auto) 12.7 H Lymph # (Auto) 2.2 [place] # (Auto) 1.3 H Eos # (Auto) 15.9 H Baso # (Auto) 0.1 WBC Differential Manual diff final Seg Neuts % (Manual) 37 Lymphocytes % (Manual) 5 L Monocytes % (Manual) 4 Eosinophils % (Manual) 54 H Abs Neuts (Manual) 11.9 H Differential Comment . Platelet Estimate Normal Platelet Morphology Normal Sodium 137 Potassium 5.6 H D Chloride 100 Carbon Dioxide 29.4 Anion Gap 8 BUN 17 Creatinine 1.12 Estimated GFR 80 L Random Glucose 83 Calcium 9.2 D JOHN Screen Neg 03/02/18 14:47 WBC RBC Hgb Hct MCV MCH MCHC RDW Plt Count MPV Prelim Diff (Auto) Neut % (Auto) Lymph % (Auto) [place] % (Auto) Eos % (Auto) Baso % (Auto) Neut # (Auto) Lymph # (Auto) [place] # (Auto) Eos # (Auto) Baso # (Auto) WBC Differential Seg Neuts % (Manual) Lymphocytes % (Manual) Monocytes % (Manual) Eosinophils % (Manual) Abs Neuts (Manual) Differential Comment Platelet Estimate Platelet Morphology Sodium 136 Potassium 4.1 D Chloride 99 Carbon Dioxide 28.2 Anion Gap 9 BUN 17 Creatinine 1.07 Estimated GFR 85 L Random Glucose 114 H Calcium 8.6 JOHN Screen Microbiology 02/27/18 20:00 Blood - Peripheral Aerobic Blood Culture - Preliminary No growth in 3 days 02/27/18 20:00 Blood - Peripheral Anaerobic Blood Culture - Preliminary No growth in 3 days 02/27/18 20:07 Blood - Peripheral Aerobic Blood Culture - Preliminary No growth in 3 days 02/27/18 20:07 Blood - Peripheral Anaerobic Blood Culture - Preliminary No growth in 3 days - Imaging ITS Impressions Chest X-Ray 02/27/18 00:00 CONCLUSION: Probable right lung pneumonia. Follow up is recommended with repeat chest x-ray 4-6 weeks after appropriate clinical therapy. Abdomen/Pelvis CT 02/27/18 16:16 CONCLUSION: 1. No definite acute abnormality seen. 2. Possible mild hiatal hernia. Chest CT 02/28/18 00:00 CONCLUSION: 1. Area of densely calcified pleural plaque involving the anterior aspect of the right upper lobe with adjacent parenchymal opacity and architectural distortion consistent with an area of scarring and rounded atelectasis. Given lack of prior imaging recommend follow-up imaging in 3-6 months to evaluate for stability. Assessment and Plan - Assessment (1) SIRS (systemic inflammatory response syndrome) Code(s): R65.10 - Systemic inflammatory response syndrome (SIRS) of non- infectious origin without acute organ dysfunction Status: Resolved (2) Eosinophilia Code(s): D72.1 - Eosinophilia Status: Acute (3) Renal insufficiency Code(s): N28.9 - Disorder of kidney and ureter, unspecified Status: Acute (4) Asthma Code(s): J45.909 - Unspecified asthma, uncomplicated Status: Chronic (5) Back pain Code(s): M54.9 - Dorsalgia, unspecified Status: Acute - Plan 59-year-old AAM was [facility] for findings of Hypereosinophia and Leukocytosis, admitted for inpatient management of SIRS with unclear source 1. SIRSs Source-unclear CT Abd/Pelvis w/ no acute findings U/A Neg CT chest showed area of densely calcified pleural plaquing involving the anterior aspect of the right upper lobe with adjacent parenchymal opacity consistent with a area of scarring and rounded atelectasis. (Patient reports this is a previous findings and [facility] that showed no signs of malignancy) Bld Cx Neg x4 Bld Fungal Cx pending Dc Levaquin per ID Elevated CRP and procalcitonin, F/U in AM 2. HyperEosinophilia Eosinophilia possibly related to Asthma, however higher than expected Appreciate ID and Hematology recommendations and assistance in workup. Rule out infection however unlikely. Appreciate pulmonary service assistance for further evaluation workup for Churg- Juan C syndrome. Per ID 02/28: Check eosinophils in urine. Check Stool studies to r/o parasites. Check Fungal and AFB blood infections. Check Aspergillus as cause for Pulm Eosinophilia syndrome. Consult Pulmonology may need Bronch if eosinophilia persists send BAL eosinophils count and cultures. Fungal studies Continue Levaquin for now. Check HIV screen Check Hepatitis panel. Check Immunoglobulins particularly IgE. Follow cultures and tests Follow clinical course. 3. Leukocytosis, worsening WBC 32.2 from 27.9 Unclear etiology, likely reactive Hematology oncology to assist in further workup to rule out T-cell lymphoma or other differential diagnosis. Negative hepatitis panel and negative HIV, pending further serology Per hematology possible bone marrow biopsy pending repeat labs Per HemOnc 03/01: Leukocytosis and eosinophilia, with acute onset. Likely reactive, further workup is pending. ESR is high at 115. IgG 1880, IgA 160 and IgM 37. Hepatitis and HIV panel were nonreactive. Mark 2 is pending. Pathology slide review is pending. Asthma, denies any shortness of breath. Patient evaluated by pulmonology for CT chest that showed dense calcification with questionable scarring. Management per pulmonology. Prostate cancer, reportedly diagnosed about 3 months ago. Per patient his Crissy score was 6 and his PSA was 5. He was scheduled to start radiation at the end of this month. Renal insufficiency, improvement with hydration. Back pain, resolved at this time. Repeat CBC in the a.m. Continue to await pending studies. 4. Hx of Asthma Cont. Symbicort BID and Albuterol Neb PRN 5. ELISE superimposed on chronic kidney disease stage III, resolved Cr 1.12 today, 1.64 on admission s/p IVF 6. Hyperkalemia, K5.[address] on Tele s/p Alb 10mg in 4nl NL Improved 7. Back Pain Musculoskeletal Continue analgesics/antiemetics as needed Avoid NSAIDS due to ELISE 8. DVT Prophylaxis: SCD/Teds Per Pulm 03/01: Cont Symbicort 160/4.5 mcg, 2puffs BID. Cont Levaquin for 5 days OK to go home for OP F/U and plan Bronchoscopy as OP. Will see him as OP in 3 weeks. PFT in am before discharge 9. Dispo: D/C pending HemOnc and ID reccs
[2018-03-03] MEDS: Sod Chloride 0.9% Inj 1,000 ML IV.CONT SCH (05:41)
[2018-03-03 07:19] LABS: Baso # (Auto) 0.2 th/mm3 (0.0-0.2); Baso % (Auto) 0.6 % (0.0-2.0); Eos # (Auto) 17.4 th/mm3 (0.0-0.4); Eos % (Auto) 54.1 % (0.0-4.0); Hemoglobin 12.2 gm/dL (13.0-17.0); Lymph # (Auto) 1.6 th/mm3 (1.0-4.8); Lymph % (Auto) 5.1 % (9.0-44.0); Mean Corpuscular HGB Conc 33.8 % (32.0-36.0); Mean Corpuscular Hemoglobin 30.8 pg (27.0-34.0); Mean Corpuscular Volume 91.1 fL (80.0-100.0); Mean Platelet Volume 8.3 fL (7.0-11.0); Mono # (Auto) 1.3 th/mm3 (0.0-0.9); Mono % (Auto) 4.2 % (0.0-8.0); Neut # (Auto) 11.5 th/mm3 (1.8-7.7); Platelet Count 414 th/mm3 (150-450); Red Blood Count 3.94 mil/mm3 (4.50-5.90); Red Cell Distribution Width 13.2 % (11.6-17.2); White Blood Count 32.1 th/mm3 (4.0-11.0)
[2018-03-03 07:52] LABS: Albumin 2.2 g/dL (3.4-5.0); Anion Gap 8 meq/L (5-15); Aspartate Aminotransferase 18 U/L (15-37); Blood Urea Nitrogen 14 mg/dL (7-18); Calcium 8.4 mg/dL (8.5-10.1); Carbon Dioxide 27.6 meq/L (21.0-32.0); Chloride 98 meq/L (98-107); Glomerular Filtration Rate Greater Than 89 mL/min (>89); Glucose,Random 91 mg/dL (74-106); Potassium 4.5 meq/L (3.5-5.1); Sodium 134 meq/L (136-145)
[2018-03-03 07:58] LABS: Alanine Aminotransferase 25 U/L (12-78); Alkaline Phosphatase 78 U/L (45-117); Total Protein 7.7 g/dL (6.4-8.2)
--- NOTE | 2018-03-03 08:02 | P.PNONC ---
Subjective Interval history: Patient does not 1 bronchoscopy today. He wants to have the bronchoscopy done with his wet milling wheel operator at the [facility]. He denies any chest pain or shortness of breath. He denies any cough. He remains afebrile. He has no nausea vomiting or diarrhea. Objective Vital Signs/Intake & Output: Vital Signs 03/02/18 09:16 03/02/18 12:48 03/02/18 13:44 Temperature 97.3 F L 97.1 F L Pulse Rate 96 H 90 101 H Respiratory Rate 16 16 16 Blood Pressure 144/74 H 137/71 Pulse Oximetry 98 96 03/02/18 14:14 03/02/18 14:18 03/02/18 14:22 Temperature Pulse Rate 109 H 103 H 108 H Respiratory Rate 16 16 16 Blood Pressure Pulse Oximetry 03/02/18 16:32 03/02/18 20:00 03/03/18 00:00 Temperature 97.6 F 97.6 F 98.0 F Pulse Rate 89 85 89 Respiratory Rate 16 17 17 Blood Pressure 136/74 131/67 136/78 Pulse Oximetry 100 99 99 03/03/18 04:00 Temperature 97.9 F Pulse Rate 76 Respiratory Rate 17 Blood Pressure 126/72 Pulse Oximetry 98 Intake & Output 03/02/18 03/03/18 03/03/18 18:59 06:59 18:59 Other: Date of Last Bowel Movement 02/27/18 03/02/18 Result Diagrams: 03/03/18 05:10 03/03/18 05:10 Laboratory Results: Laboratory Results - last 24 hr 02/28/18 03/02/18 03/02/18 12:50 04:18 14:47 WBC RBC Hgb Hct MCV MCH MCHC RDW Plt Count MPV Prelim Diff (Auto) Neut % (Auto) Lymph % (Auto) [place] % (Auto) Eos % (Auto) Baso % (Auto) Neut # (Auto) Lymph # (Auto) [place] # (Auto) Eos # (Auto) Baso # (Auto) WBC Differential Manual diff final Seg Neuts % (Manual) 37 Lymphocytes % (Manual) 5 L Monocytes % (Manual) 4 Eosinophils % (Manual) 54 H Abs Neuts (Manual) 11.9 H Differential Comment Platelet Estimate Normal Platelet Morphology Normal Sodium 136 Potassium 4.1 D Chloride 99 Carbon Dioxide 28.2 Anion Gap 9 BUN 17 Creatinine 1.07 Estimated GFR 85 L Random Glucose 114 H Calcium 8.6 Total Bilirubin AST ALT Alkaline Phosphatase C-Reactive Protein Total Protein Albumin JOHN Screen Neg 03/03/18 03/03/18 05:10 05:10 WBC 32.1 H RBC 3.94 L Hgb 12.2 L Hct 36.0 L MCV 91.1 MCH 30.8 MCHC 33.8 RDW 13.2 Plt Count 414 MPV 8.3 Prelim Diff (Auto) Slide review pending Neut % (Auto) 36.0 Lymph % (Auto) 5.1 L [place] % (Auto) 4.2 Eos % (Auto) 54.1 H Baso % (Auto) 0.6 Neut # (Auto) 11.5 H Lymph # (Auto) 1.6 [place] # (Auto) 1.3 H Eos # (Auto) 17.4 H Baso # (Auto) 0.2 WBC Differential Seg Neuts % (Manual) Lymphocytes % (Manual) Monocytes % (Manual) Eosinophils % (Manual) Abs Neuts (Manual) Differential Comment . Platelet Estimate Platelet Morphology Sodium 134 L Potassium 4.5 Chloride 98 Carbon Dioxide 27.6 Anion Gap 8 BUN 14 Creatinine 0.96 Estimated GFR Greater than 89 Random Glucose 91 Calcium 8.4 L Total Bilirubin 0.6 AST 18 ALT 25 Alkaline Phosphatase 78 C-Reactive Protein 12.00 H Total Protein 7.7 Albumin 2.2 L JOHN Screen Culture Results: Microbiology 02/27/18 20:00 Aerobic Blood Culture - Preliminary Blood - Peripheral No growth in 3 days Anaerobic Blood Culture - Preliminary No growth in 3 days 02/27/18 20:07 Aerobic Blood Culture - Preliminary Blood - Peripheral No growth in 3 days Anaerobic Blood Culture - Preliminary No growth in 3 days Medications: Active Medications Generic Name Dose Route Start Last Admin Trade Name Freq PRN Reason Stop Dose Admin Hydrocodone Bitart/Acetaminophen 1 tab 02/27/18 21:19 03/02/18 23:06 [place] 5/325 PO 1 tab Q4H PRN Administration PAIN 3-5 Al Hydroxide/Mg Hydroxide 30 ml 02/27/18 19:36 03/02/18 08:09 Milk Of Willem Liq PO 30 ml Q12H PRN Administration Mild Constipation Budesonide/Formoterol Fumarate 2 puff 02/28/18 21:00 03/02/18 21:17 Symbicort 160/4.5 Mcg Inh INH 2 puff BID SHAMA Administration Sodium Chloride 1,000 mls @ 100 mls/hr 02/27/18 20:00 03/03/18 05:41 Ns Inj IV.CONT Not Given .Q10H SHAMA Lactulose 30 ml 02/27/18 19:36 03/02/18 08:09 Lactulose Liq PO 30 ml DAILY PRN Administration SEVERE CONSITIPATION Senna/Docusate Sodium 1 tab 02/27/18 21:00 03/02/18 20:40 Marichuy-Colace PO Not Given BID SHAMA Sodium Chloride 2 ml 02/27/18 16:16 02/27/18 17:55 Ns Flush IV.FLUSH 2 ml PRN PRN Administration FLUSH AFTER USING IV ACCESS Objective Remarks: GENERAL: Well-nourished, well-developed patient. SKIN: Warm and dry. HEAD: Normocephalic. EYES: No scleral icterus. No injection or drainage. NECK: Supple, trachea midline. No JVD or lymphadenopathy. LYMPHATIC: No adenopathy. CARDIOVASCULAR: Regular rate and rhythm without murmurs. RESPIRATORY: Breath sounds equal bilaterally. No accessory muscle use. GASTROINTESTINAL: Abdomen soft, non-tender, nondistended. EXTREMITIES: No cyanosis, or edema. MUSCULOSKELETAL: Adequate muscle tone. NEUROLOGICAL: No obvious focal deficit. Awake, alert, and oriented x3. PSYCHIATRIC: Appropriate mood and affect; insight and judgment normal. Assessment/Plan (1) Eosinophilia Code(s): D72.1 - Eosinophilia Status: Acute (2) Back pain Code(s): M54.9 - Dorsalgia, unspecified Status: Acute (3) Prostate cancer Code(s): C61 - Malignant neoplasm of prostate Status: Acute - Plan Mr. Louis is a pleasant 62-year-old male patient who [facility] eosinophilia and to evaluate for Churg-Juan C syndrome. Patient has a history of asthma, with occasional exacerbations. His last episode was approximately 2 weeks ago. He is also had some mid back pain, related to picking up a mattress several weeks ago. The patient was on Aleve for approximately 4 days prior to developing midepigastric pain. The Aleve was stopped and he was given meloxicam and baclofen which she has been taking for the last 4-5 days. History of recent diagnosis of prostate cancer, due to start radiation at the end of the month. Hematology was consulted for leukocytosis with 50% eosinophilia. Plan: 1. WBC stable at 32,000 with eosinophilia. Flow cytometry is still pending. FIONA-2 is also pending. 2. Patient declined bronchoscopy today and wants to follow-up with his wet milling wheel operator at [facility] for the bronchoscopy. 3. Prostate cancer, reportedly diagnosed about 3 months ago. Per patient his Crumrod score was 6 and his PSA was 5. He was scheduled to start radiation at the end of this month. 4. Patient can be discharged from hematology standpoint since is stable without symptom at this time. He can follow-up with a loading machine adjuster at the [place] clinic.
[2018-03-03 09:10] LABS: Eosinophils 54 % (0-4); Lymphocytes 5 % (9-44); Monocytes 2 % (0-8)
[2018-03-03 09:11] LABS: Platelet Estimate Normal (Normal); Platelet Morphology Normal (Normal); RBC Morphology Normal (Normal)
[2018-03-03] MEDS: Budesonide-Formoterol 160/4.5 MCG 6 GM Inhaler INH SCH (09:36)
[2018-03-03] MEDS: Senna/Docusate Sodium 8.6/50 MG Tablet PO SCH (09:36)
--- NOTE | 2018-03-03 12:12 | P.DS ---
Date of admission: 02/27/18 19:40 Primary care physician: UNKNOWN Brief History from admission: This is a 62-year-old male with a PMH of Prostate CA, Hyperlipidemia and Asthma who was referred to the ER by the [facility] for eosinophilia and to r/o Churg-Juan C Syndrome. Pt states he was seen at the [facility] for routine blood work and was told his eosinophils were elevated at 50%. Previous lab work in February of last year was normal per patient. Does have a h/o Asthma. Recently injured his back while picking up a mattress and has been taking Aleve prn w/ some relief, however developed abdominal pain and stopped taking Aleve 1wk ago. Denies fever , chills, cough, sick contacts, night sweats or recent travel. On arrival, BP 125/64, HR 114, O2 sat 100% on RA, Afebrile. WBC 27. Eosinophils 48%. INR 1.2. Creatinine 1.64, no previous labs for comparison. CT Abd/Pelvis w/ no acute abnormalities. Dr. Ladd consulted by ER physician, recommended antibiotics and likely eval w/ ID. Pt without complaints at this time. DS: Diagnosis - Discharge Diagnosis (1) SIRS (systemic inflammatory response syndrome) Status: Resolved (2) Eosinophilia Status: Acute (3) Renal insufficiency Status: Acute (4) Asthma Status: Chronic (5) Back pain Status: Acute DS: Medications - Discharge Medications Prescriptions: hydrocodone-acetaminophen 1 tab PO Q6H PRN #12 tab PRN Reason: Acute Pain prednisone 20 mg PO DAILY #25 tab DS: Summary Hospital Course: 59-year-old AAM was sent to the emergency room by his primary care physician [place] [facility] for continue workup for findings of Hypereosinophia and Leukocytosis, admitted for inpatient management of SIRS with unclear source 1. SIRSs Source-unclear CT Abd/Pelvis w/ no acute findings U/A Neg CT chest showed area of densely calcified pleural plaquing involving the anterior aspect of the right upper lobe with adjacent parenchymal opacity consistent with a area of scarring and rounded atelectasis. (Patient reports this is a previous findings and [facility] no signs of malignancy) Bld Cx Neg x4 Bld Fungal Cx pending Dc Levaquin per ID Elevated CRP and procalcitonin 2. Hypereosinophilia Eosinophilia possibly related to Asthma, however higher than expected Appreciate ID and Hematology recommendations and assistance in workup. Pending flow cytometry and Mark 2 Rule out infection however unlikely. Appreciate pulmonary service assistance for further evaluation for Churg- Juan C syndrome. Refusing bronchoscopy in-house stating he has an appointment with PCP Dr. Coe on March 10 and will be referred to [facility] pulmonology. He is aware that bronchoscopy is strongly recommended to be done inpatient to help establish diagnosis and start definitive treatment. He might return to the hospital with worsening symptoms especially difficulty breathing. Pulmonary recommended to continue Symbicort and start prednisone taper. Patient wants to go home. He is clinically stable at this time with no symptoms. He is ambulating on room air 3. Leukocytosis, stable WBC 32.2 from 27.9 Unclear etiology, likely reactive Hematology oncology to assist in further workup to rule out T-cell lymphoma or other differential diagnosis. Pending flow cytometry and Mark 2 Negative hepatitis panel and negative HIV, pending further serology Per hematology possible bone marrow biopsy pending repeat labs 4. Hx of Asthma Cont. Symbicort BID and Albuterol Neb PRN 5. ELISE superimposed on chronic kidney disease stage III, resolved s/p IVF 6. Hyperkalemia, K5.[address] on Tele s/p Alb 10mg in 4nl NL Improved 7. Back Pain. Patient states he had a PET scan and lumbar CT outpatient which did not identify etiology of back pain Musculoskeletal Continue analgesics/antiemetics as needed Avoid NSAIDS due to ELISE 8. DVT Prophylaxis: SCD/Teds Eforcse queried - Time Spent with Patient Total time spent providing and/or coordinating discharge services: Greater than 30 minutes - Quality: VTE Deep Vein Thrombosis/Pulmonary Embolism Present on Admission: No Exam Vital signs: Vital Signs 03/02/18 12:48 03/02/18 13:44 03/02/18 14:14 Temperature 97.1 F L Pulse Rate 90 101 H 109 H Respiratory Rate 16 16 16 Blood Pressure 137/71 Pulse Oximetry 96 03/02/18 14:18 03/02/18 14:22 03/02/18 16:32 Temperature 97.6 F Pulse Rate 103 H 108 H 89 Respiratory Rate 16 16 16 Blood Pressure 136/74 Pulse Oximetry 100 03/02/18 20:00 03/03/18 00:00 03/03/18 04:00 Temperature 97.6 F 98.0 F 97.9 F Pulse Rate 85 89 76 Respiratory Rate 17 17 17 Blood Pressure 131/67 136/78 126/72 Pulse Oximetry 99 99 98 03/03/18 08:00 Temperature 97.9 F Pulse Rate 86 Respiratory Rate 17 Blood Pressure 142/82 H Pulse Oximetry 93 L Intake & Output 03/02/18 03/03/18 03/03/18 18:59 06:59 18:59 Other: Date of Last Bowel Movement 02/27/18 03/02/18 03/02/18 Narrative: GENERAL: This is a well-nourished, AAM, in NAD CARDIOVASCULAR: Regular rate and rhythm, S1 and S2 without murmurs, gallops, or rubs. RESPIRATORY: Distant breath sounds with Occ Wheeze. GASTROINTESTINAL: Abdomen soft, non-tender, nondistended. + bowel sounds MUSCULOSKELETAL: Extremities without clubbing, cyanosis, or edema. NEURO: Alert & Oriented x4 to person, place, time, situation. Moves all ext x4 EXT: no edema or cyanosis Results Procedures completed during hospitalization: none Labs on day of discharge: Labs from last 24 hours 03/03/18 03/03/18 03/02/18 05:10 05:10 14:47 WBC 32.1 H RBC 3.94 L Hgb 12.2 L Hct 36.0 L MCV 91.1 MCH 30.8 MCHC 33.8 RDW 13.2 Plt Count 414 MPV 8.3 Prelim Diff (Auto) Slide review pending Neut % (Auto) 36.0 Lymph % (Auto) 5.1 L [place] % (Auto) 4.2 Eos % (Auto) 54.1 H Baso % (Auto) 0.6 Neut # (Auto) 11.5 H Lymph # (Auto) 1.6 [place] # (Auto) 1.3 H Eos # (Auto) 17.4 H Baso # (Auto) 0.2 WBC Differential Manual diff final Seg Neuts % (Manual) 39 Lymphocytes % (Manual) 5 L Monocytes % (Manual) 2 Eosinophils % (Manual) 54 H Abs Neuts (Manual) 12.5 H Differential Comment . Platelet Estimate Normal Platelet Morphology Normal RBC Morphology Normal Sodium 134 L 136 Potassium 4.5 4.1 D Chloride 98 99 Carbon Dioxide 27.6 28.2 Anion Gap 8 9 BUN 14 17 Creatinine 0.96 1.07 Estimated GFR Greater than 89 85 L Random Glucose 91 114 H Calcium 8.4 L 8.6 Total Bilirubin 0.6 AST 18 ALT 25 Alkaline Phosphatase 78 C-Reactive Protein 12.00 H Total Protein 7.7 Albumin 2.2 L JOHN Screen Immunophenotypic Anal CML (FISH) Result Misc Test Result Misc Test Comment 02/28/18 02/28/18 02/28/18 12:50 12:50 12:50 WBC RBC Hgb Hct MCV MCH MCHC RDW Plt Count MPV Prelim Diff (Auto) Neut % (Auto) Lymph % (Auto) [place] % (Auto) Eos % (Auto) Baso % (Auto) Neut # (Auto) Lymph # (Auto) [place] # (Auto) Eos # (Auto) Baso # (Auto) WBC Differential Seg Neuts % (Manual) Lymphocytes % (Manual) Monocytes % (Manual) Eosinophils % (Manual) Abs Neuts (Manual) Differential Comment Platelet Estimate Platelet Morphology RBC Morphology Sodium Potassium Chloride Carbon Dioxide Anion Gap BUN Creatinine Estimated GFR Random Glucose Calcium Total Bilirubin AST ALT Alkaline Phosphatase C-Reactive Protein Total Protein Albumin JOHN Screen Immunophenotypic Anal CML (FISH) Result Pending Misc Test Result Cancelled Misc Test Comment Cancelled 02/28/18 12:50 WBC RBC Hgb Hct MCV MCH MCHC RDW Plt Count MPV Prelim Diff (Auto) Neut % (Auto) Lymph % (Auto) [place] % (Auto) Eos % (Auto) Baso % (Auto) Neut # (Auto) Lymph # (Auto) [place] # (Auto) Eos # (Auto) Baso # (Auto) WBC Differential Seg Neuts % (Manual) Lymphocytes % (Manual) Monocytes % (Manual) Eosinophils % (Manual) Abs Neuts (Manual) Differential Comment Platelet Estimate Platelet Morphology RBC Morphology Sodium Potassium Chloride Carbon Dioxide Anion Gap BUN Creatinine Estimated GFR Random Glucose Calcium Total Bilirubin AST ALT Alkaline Phosphatase C-Reactive Protein Total Protein Albumin JOHN Screen Neg Immunophenotypic Anal CML (FISH) Result Misc Test Result Misc Test Comment Preliminary micro results at discharge 02/27/18 20:00 Aerobic Blood Culture - Preliminary Blood - Peripheral No growth in 4 days Anaerobic Blood Culture - Preliminary No growth in 4 days 02/27/18 20:07 Aerobic Blood Culture - Preliminary Blood - Peripheral No growth in 4 days Anaerobic Blood Culture - Preliminary No growth in 4 days - Impressions ITS Impressions Chest X-Ray 02/27/18 00:00 CONCLUSION: Probable right lung pneumonia. Follow up is recommended with repeat chest x-ray 4-6 weeks after appropriate clinical therapy. Abdomen/Pelvis CT 02/27/18 16:16 CONCLUSION: 1. No definite acute abnormality seen. 2. Possible mild hiatal hernia. Chest CT 02/28/18 00:00 CONCLUSION: 1. Area of densely calcified pleural plaque involving the anterior aspect of the right upper lobe with adjacent parenchymal opacity and architectural distortion consistent with an area of scarring and rounded atelectasis. Given lack of prior imaging recommend follow-up imaging in 3-6 months to evaluate for stability. Discharge Plan - Discharge Disposition Patient Disposition: 01 Discharge Home - Discharge Condition Condition: Fair - Discharge Order Discharge Orders: Discharge Order (Routine); Ordered 03/03/18 Ordered By: René Luong - Physicians Team Primary Care Provider: UNKNOWN, Attending Provider: René Luong Other Providers: Eleno Ladd MD ; Mag Cifuentes MD ; Nico Wilburn MD
[2018-03-03 12:26] VITALS: BP 117/75; PULSE 107; RESP 18; TEMP 98.2; O2SAT 96
[2018-03-04 13:44] LABS: Cryptococcus Ag Screen Negative (Negative)
[2018-03-06 16:12] LABS: Cocci Immunodiffusion IgG Negative (Negative)
== END 2018-03-03 15:10 | disposition home or self-care (01) ==
LOC: NEPE 15:35 → NEDA 19:40 → N06 21:20
PROVIDERS: ADMIT Internal Medicine; ATTEND Internal Medicine